=== PATIENT | male | born 1980 | race Caucasian/White ===

== ENCOUNTER 2024-10-21 15:06 | Emergency (ER) | payer OTHER ==
[~2024-10-21] VITALS: Ht 175.3 cm; Wt 60.8 kg
[2024-10-21] MEDS ORDERED: LOTRIMIN ULTRA12 GM TOP (15:59)
[2024-10-21] MEDS ORDERED: LOTRIMIN AF12 GM TOP (17:34)
[2024-10-21] MEDS ORDERED: TERBINAFINE HC250 MG PO (17:34)
[2024-10-21] MEDS ORDERED: BACTRIM DS TAB1 EACH PO (17:34)
[2024-10-21 17:42] VITALS: BP 132/93
[2024-10-21] MEDS ORDERED: TRIMETHOPRIM/SULFAMETHOXAZOLE 1 EA TAB PO ONE (17:45)
== END 2024-10-21 17:42 | disposition home or self-care (01) ==
LOC: ED 15:06
DX: L03.115 Cellulitis of right lower limb (principal); B35.1 Tinea unguium; B35.3 Tinea pedis; J45.909 Unspecified asthma, uncomplicated; Z79.899 Other long term (current) drug therapy
CPT/HCPCS: 99282; A9270

== ENCOUNTER 2025-06-23 08:37 | Inpatient (IN) | payer OTHER ==
[~2025-06-23] VITALS: Ht 175.3 cm; Wt 71.7 kg
[2025-06-23] VITALS (14 sets, daily range): BP systolic 95–136; BP diastolic 46–92
[~2025-06-23 08:37] MED LIST: BACTRIM DS TAB1 EACH PO; LOTRIMIN AF12 GM TOP; LOTRIMIN ULTRA12 GM TOP; TERBINAFINE HC250 MG PO
[2025-06-23 09:14] LABS: BASOPHILS 1.4 % (0.2-1.2); EOSINOPHILS 0.8 % (0.8-7.0); LYMPHOCYTES 16.6 % (21.8-53.1); MCH 35.6 PG (25.7-32.2); MCHC 36.2 g/dL (32.3-36.5); MCV 98.4 fL (79.0-92.2); MONOCYTES 9.4 % (5.3-12.2); NEUTROPHILS 71.4 % (34.0-67.9); RBC 3.71 M/uL (4.63-6.08)
[2025-06-23] MEDS ORDERED: PANTOPRAZOLE SODIUM 40 MG/10 ML VIAL IV ONE (09:15)
[2025-06-23] MEDS ORDERED: LORazepam 2 MG/ML VIAL IV ONE ×2 (09:15→10:30)
[2025-06-23 09:23] LABS: INR 1.8 (0.80-1.30); PROTIME 19.8 Sec (11.2-14.2)
[2025-06-23 09:28] LABS: ALT (SGPT) 23.0 U/L (14-59); AST (SGOT) 112.0 U/L (15-37); GLOMERULAR FILTRATION RATE,EST 117.0 mL/min (>60); PROTEIN, TOTAL 7.6 g/dL (6.4-8.2); UREA NITROGEN 5.0 mg/dL (7-18)
[2025-06-23 09:48] LABS: ABO A; ANTIBODY SCREEN NEGATIVE; RH POSITIVE
[2025-06-23] MEDS ORDERED: SODIUM CHLORIDE 0.9% 1,000 ML IV ONE ×2 (10:00→16:00)
[2025-06-23 10:19] LABS: CORONAVIRUS COVID-19 AG NEGATIVE (NEGATIVE)
[2025-06-23] MEDS ORDERED: NICOTINE POLACRILEX 2 MG GUM MM PRN ×2 (12:15→12:30)
[2025-06-23] MEDS ORDERED: LACTATED RINGER'S 1,000 ML IV SCH (12:15)
[2025-06-23] MEDS ORDERED: PANTOPRAZOLE SODIUM 40 MG TABEC PO SCH (12:19)
[2025-06-23] MEDS ORDERED: NICOTINE 21 MG/24 HR 1 EA TDSY TD SCH (12:19)
[2025-06-23] MEDS ORDERED: FOLIC ACID 1 MG/0.2 ML ML IV SCH (12:22)
[2025-06-23] MEDS ORDERED: THIAMINE HCL 200 MG/2 ML VIAL IV SCH (12:22)
[2025-06-23] MEDS ORDERED: LORazepam 2 MG/ML VIAL IV/IM PRN (12:30)
[2025-06-23] MEDS ORDERED: POLYETHYLENE GLYCOL 3350 1 PACKET PO PRN (12:30)
[2025-06-23] MEDS ORDERED: DEXTROSE 5% IV ONE ×2 (12:30→12:45)
[2025-06-23] MEDS ORDERED: ACETYLCYSTEINE IV ONE ×2 (12:30→12:45)
[2025-06-23] MEDS ORDERED: NICOTINE 14 MG/24 HR 1 EA TDSY TD ONE (12:30)
--- NOTE | 2025-06-23 14:20 | NUR ---
Medications reconciled
[2025-06-23] MEDS ORDERED: PHENOBARBITAL SOD 130 MG/ML VIAL IV ONE ×2 (16:00→22:15)
--- NOTE | 2025-06-23 16:33 | NUR ---
CALL PLACED TO [facility] TRANSFER CENTER TO ATTEMPT TRANSFER
--- NOTE | 2025-06-23 16:46 | NUR ---
[facility] REPORTS NO BEDS. [facility] REPORTS NO BEDS, WITH "SIGNIFICANT WAITLIST."
[2025-06-23 16:52] LABS: BLOOD/HGB, URINE MODERATE (Negative); KETONE, URINE >=80 (Negative); LEUK ESTERASE, URINE NEGATIVE (negative); NITRITE, URINE POSITIVE (negative)
--- NOTE | 2025-06-23 16:58 | NUR ---
CALLS TO BOTH [facility] AND [facility] WHO STATE THEY DO NOT HAVE HEPATOLOGY, BUT WILL GET CONSULT FOR GI AND CALL BACK.
[2025-06-23 16:59] LABS: EPITHELIAL CELLS, URINE SQUAMOUS 1+ /lpf (0-1+)
[2025-06-23 17:01] LABS: BACTERIA, URINE 1+ /hpf (negative); CASTS, URINE WBC CAST 2+ \\lpf; CRYSTALS, URINE NONE SEEN (0-1+); REFLEX CULTURE, URINE Yes (No)
--- NOTE | 2025-06-23 17:04 | NUR ---
PT CIWA OF 11 MUMBLINE,RAMBLING, PICKING AT THE AIR. PT MEDICATED WITH 2MG IVP ATIVAN. SIDERAILS UP X 4, CALL DERAS IN REACH, BED IN LOW POSITION AND LOCKED.
--- NOTE | 2025-06-23 17:08 | NUR ---
PATIENT ADMITTED AT 1400 FOR ETOH W/D AND ALCOHOLIC HEPATITIS. [facility] PT STARTED ON IV ACETYLCYSTEINE. IV SITE IN LEFT AC LEAKING AND AFTER REDRESSING SITE, STILL LEAKING AND THIS WAS D/C. PT BLEEDING FROM THIS SITE AND MANUAL PRESSURE APPLIED AND THEN GAUZE WITH COBAN. NEW IV SITES ESTABLISHED AND WORKING WELL. DR. DERAS IN ROOM TO SEE PATIENT AROUND 1600 AND DECIDES THAT PATIENT NEEDS TO TRANSFER TO HIGHER LEVEL OF CARE. THIS WAS DISCUSSED WITH PATIENT AND HE AGREES TO PLAN. ORDERS REC'D TO GIVE PHENOBARBITAL AND ANOTHER SALINE BOLUS, WELL STARTING MAINTENANCE FLUIDS. PATIENT'S HANNAH CALLED AT [phone] T0 UPDATE HER ON THE POTENTIAL TRANSFER. PT HAS REC'D 4 MG OF IV ATIVAN SINCE ARRIVING TO CCU AND 130 MG OF PHENOBARBITAL (SEE EMAR). WILL CONTINUE TO MONITOR CLOSELY.
--- NOTE | 2025-06-23 17:50 | NUR ---
PT TRANSFERRED TO ROOM 129 FOR CLOSER VISUAL OBSERVATION. ALL PERSONAL BELONGINGS TRANSFERRED TO NEW ROOM. PT WATCH PLACED IN LOCK BOX IN ROOM. PT CONTINUES MUMBLING, FIDGITING, PICKING AT THINGS IN THE AIR AND RAISING LEGS. PT UNABLE TO ANSWER QUESTIONS CLEARLY. CIWA SCORE 14. PT MEDICATED WITH 2MG IVP ATIVAN. SIDERAILS UP X 4, CALL DERAS IN REACH, BED IN LOW POSITION AND LOCKED.
--- NOTE | 2025-06-23 18:02 | NUR ---
PATIENT'S CALLED TO UPDATE THAT HE IS NOT BEING TRANSFERRED TONIGHT AT THIS POINT AFTER DR. DERAS HAD CONVERSATIONS WITH OTHER PHYSICIANS AT OTHER HOSPITALS. PER DR. DERAS, WILL CONTINUE TO MONITOR LAB LEVELS AND SEEK TRANSFER IF FURTHER INDICATED. PT HAS NOW REC'D 8 MG OF IV ATIVAN SINCE ADMISSION AND 130 MG IV PHENOBARBITAL.
[2025-06-23] MEDS ORDERED: MAGNESIUM SULFATE 2 GM/50 ML BAG IV SCH (18:15)
[2025-06-23] MEDS ORDERED: MELATONIN 3 MG TAB PO PRN (21:00)
--- NOTE | 2025-06-23 22:49 | NUR ---
1929: Upon initial assessment, pt somnolent, this RN unable to wake pt via sternal rub. 2011: This RN spoke with Dr. Shah with concerns for urinary retention. At this time, pt had only had 175ml output. Bladder scan amount >631. Portillo order per Dr. Shah. This RN unable to advance 16 Fr Portillo d/t size of urethral meatus. 14 Fr Coude inserted without difficulty. After insertion, pt expressed urge to urinate and began pushing. Urine flow around catheter noted. 2204: Pt continues to become increasingly restless, agitated, impulsive. He is minimally responsive to reorientation/redirection. CIWA continues to increase despite Ativan dosing. This RN spoke with Dr. Shah regarding this, 130mg Phenobarbital ordered per .
[2025-06-24] VITALS (24 sets, daily range): BP systolic 97–128; BP diastolic 66–97
[2025-06-24 05:14] LABS: BASOPHILS 1.4 % (0.2-1.2); EOSINOPHILS 3.0 % (0.8-7.0); LYMPHOCYTES 24.6 % (21.8-53.1); MCH 34.7 PG (25.7-32.2); MCHC 35.2 g/dL (32.3-36.5); MCV 98.7 fL (79.0-92.2); MONOCYTES 12.6 % (5.3-12.2); NEUTROPHILS 57.9 % (34.0-67.9); RBC 2.97 M/uL (4.63-6.08)
[2025-06-24 05:30] LABS: INR 2.26 (0.80-1.30); PROTIME 23.6 Sec (11.2-14.2)
[2025-06-24 05:37] LABS: ALT (SGPT) 18.0 U/L (14-59); AST (SGOT) 75.0 U/L (15-37); GLOMERULAR FILTRATION RATE,EST 128.0 mL/min (>60); PHOSPHORUS, INORGANIC 1.8 mg/dL (2.5-4.9); PROTEIN, TOTAL 5.8 g/dL (6.4-8.2); UREA NITROGEN 6.0 mg/dL (7-18)
[2025-06-24] MEDS ORDERED: POTASSIUM PHOSPHATE 30 MMOL in DEXTROSE 5% 500 ML IV ONE (06:45)
[2025-06-24] MEDS ORDERED: PHYTONADIONE 5 MG in DEXTROSE 5% 50 ML IV ONE (06:45)
[2025-06-24] MEDS ORDERED: ALBUTEROL SULFATE 0.083% 3 ML VIAL INH PRN (07:00)
[2025-06-24] MEDS ORDERED: ALBUMIN HUMAN 25% 100 ML BTL IV SCH (07:00)
--- NOTE | 2025-06-24 07:35 | EKG ---
[facility] [address] [place], [place] [address] Signed Sinus tachycardia Otherwise normal ECG No previous ECGs available Confirmed by DEEP DERAS MD ([id number]) on 06/24/2025 7:35:15 AM Electronically Signed By: DEEP DERAS 06/24/25 0735 PATIENT NAME: JOSSELIN MCCRACKEN Myles Electrocardiogram DATE OF : 84 PHYSICIAN: DEEP DERAS REPORT #: [id number] REPORT IS CONFIDENTIAL AND NOT TO BE RELEASED WITHOUT AUTHORIZATION
--- NOTE | 2025-06-24 07:40 | NUR ---
PATIENT ON THE COMMODE AT THE BEDSIDE. PATIENT NEEDED HEAVY 2PA WITH THIS RN AND CRISTINA RN. PATIENT REPORTED WEAKNESS, BUT DENIED DIZZINESS OF FEELING LIGHTHEADED. HE STATED HE FELT "GROGGY". PATIENT ON THE COMMODE WITH INABILITY TO HAVE A BOWEL MOVEMENT. PATIENT REPORTS HAVING THE URGE TO GO. PATIENT ASKED, "HAVE I BEEM GETTING ANY MEDICATIONS THAT STOP ME UP?". PATIENT EDUCATED ABOUT ABDOMINAL DISTENTION MAKING IT FEEL LIKE HE NEEDS TO HAVE A BOWEL MOVEMENT. PATIENT COMMUNICATES UNDERSTANDING. PATIENT BACK IN BED WITH HOB ELEVATED. PATIENT'S O2 SAT AT 96% ON RA. PATIENT HAS EVEN AND UNLABORED RESPIRATIONS. CALL LIGHT AND PERSONAL BELONGINGS ARE WITHIN REACH. PATIENT DENIES FURTHER NEEDS AT THIS TIME.
--- NOTE | 2025-06-24 07:59 | NUR ---
UR CLINICAL REVIEW: M[facility]-PER [facility] REVIEW MEET INPT FOR LIVER DISEASE WITH NEED FOR SERIAL LABS AND CIWA [facility] INPT 06/23/25 @ 1220 ORDER MATCHES REG CLIN[facility] FOR AUTH REVIEW DISCHARGE TO HOME PENDING FURTHER EVAL. HOME VS INPT DETOX 06/25/25 DC REVIEW
[2025-06-24] MEDS ORDERED: MULTIVITAMINS THERAPEUTIC 1 EA TAB PO SCH (08:00)
[2025-06-24] MEDS ORDERED: CHLORDIAZEPOXIDE 25 MG CAP PO SCH (09:00)
--- NOTE | 2025-06-24 10:30 | NUR ---
INTO SEE PATIENT. PERSONAL HEALTH INFORMATION REVIEWED WITH . PATIENT LIVES IN AN APARTMENT WITH AND KIDS. 8 STEPS INTO THE APARTMENT. PATIENT DOES NOT USE ANY DME. PATIENT DOES DRIVE. PCP IS DR. JONES. SPOKE WITH ABOUT ALCOHOL COUNSELING SERVICES. TEARFUL. STATES THEY HAVE BEEN HAVING DIFFCULTY PAYING UTLITIES AND GETTING FOOD. GAVE HER INFORMATION FOR [employer] AND THE FOOD CALLES. ALSO TALKED WITH HER ABOUT [employer] [facility]SP[facility].
[2025-06-24 10:35] LABS: ABO A; RH POSITIVE
[2025-06-24] MEDS ORDERED: PHARMACY RENAL DOSE ADJUSTMENT 1 DOSE MISC PO SCH (12:00)
--- NOTE | 2025-06-24 12:04 | NUR ---
PATIENT LAYING IN BED WITH HOB ELEVATED. PATIENT HAS EVEN AND UNLABORED RESPIRATIONS, 1L NC AND END-TIDAL CO2 MONITOR IN PLACE. PATIENT'S CIWA 2 WITH SOME TREMORS AND CLAMMY HANDS. HR 113 B/P 110/78 RR 28. PATIENT CONTINUES TO HAVE ABDOMINAL DISTENTION AND PRESSURE ON HIS LUNGS, BOWELS AND BLADDER. PATIENT STATES HE IS "UNABLE TO TAKE A DEEP BREATH" DUE TO HIS ABDOMINAL GIRTH. PATIENT HAS BEEN UNABLE TO HAVE A BM, EVEN WHEN HE FEELS THE NEED TO GO. AT BEDSIDE, CRISTINA RICH UPDATING ON PLAN OF CARE AND PLANS TO KEEP HIM IN THE FACILITY AT THIS TIME. PATIENT HAS PERSONAL BELONGINGS AD CALL LIGHT WITHIN REACH. ACYTYLCESTIENE, K PHOS, AND LR INFUSING AT THIS TIME.
--- NOTE | 2025-06-24 12:33 | NUR ---
PT NOT AVAILABLE FOR VISIT. PROVIDED PRAYER.
--- NOTE | 2025-06-24 12:34 | NUR ---
VISITED DURING SPIRITUAL CARE ROUNDS. PT APPEARED TO BE SLEEPING. DID NOT DISTURB. PROVIDED PRAYER.
--- NOTE | 2025-06-24 14:54 | NUR ---
1 UNIT OF PLATELETS STARTED AT 1437 AT 120 ML/HR FOR THE FIRST 30 ML INTO RIGHT FOREARM IV SITE. PT TOLERATED FIRST 15 MINUTES WITHOUT ANY SIGNS OF ADVERSE REACTIONS AND IV RATE INCREASED TO 200 ML/HR. PT ASKING FOR SPRITE AND GIVEN THIS AND TOOK SEVERAL SIPS SAFELY. PT REMAINS ON 1 L NC. HR REMAINS IN THE 110s. NO VISITORS IN ROOM AT THIS TIME. BED ALARM ON FOR SAFETY.
[2025-06-24 15:35] LABS: GLOMERULAR FILTRATION RATE,EST 129.0 mL/min (>60); PHOSPHORUS, INORGANIC 3.3 mg/dL (2.5-4.9); UREA NITROGEN 3.0 mg/dL (7-18)
[2025-06-24] MEDS ORDERED: POTASSIUM CHLORIDE 10 MEQ TABCR PO ONE (17:15)
--- NOTE | 2025-06-24 21:11 | NUR ---
Pt's agitation and anxiety progressing. Pt reporting restlessness and anxiety. This RN observed increased fidgeting. Treated w/ PRN Ativan per orders. Pt is more coherent this shift, able to verbalize needs, participate more actively in cares.
--- NOTE | 2025-06-24 23:20 | NUR ---
This RN spoke w/ Dr. Shah regarding pt increasing withdrawal symptoms. CIWA 14 despite total 8mg of Ativan, 25mg IV Benadryl, and 25mg Librium per orders. Dr. Shah recommends 130mg Phenobarbital IVP, ordered by this RN.
[2025-06-24] MEDS ORDERED: PHENOBARBITAL SOD 130 MG/ML VIAL IV ONE (23:30)
[2025-06-25] VITALS (24 sets, daily range): BP systolic 93–136; BP diastolic 61–105
[2025-06-25 05:15] LABS: BASOPHILS 0 % (0.2-1.2); EOSINOPHILS 0 % (0.8-7.0); LYMPHOCYTES 12.9 % (21.8-53.1); MCH 35.8 PG (25.7-32.2); MCHC 36.2 g/dL (32.3-36.5); MCV 98.9 fL (79.0-92.2); MONOCYTES 3.6 % (5.3-12.2); NEUTROPHILS 83.0 % (34.0-67.9); RBC 2.82 M/uL (4.63-6.08)
[2025-06-25 05:24] LABS: INR 2.34 (0.80-1.30); PROTIME 24.3 Sec (11.2-14.2)
[2025-06-25 05:29] LABS: ALT (SGPT) 20.0 U/L (14-59); AST (SGOT) 72.0 U/L (15-37); GLOMERULAR FILTRATION RATE,EST 130.0 mL/min (>60); PHOSPHORUS, INORGANIC 2.5 mg/dL (2.5-4.9); PROTEIN, TOTAL 6.1 g/dL (6.4-8.2); SMEAR REVIEW BLOOD SEE COMMENTS; UREA NITROGEN 3.0 mg/dL (7-18)
--- NOTE | 2025-06-25 05:53 | NUR ---
This RN called to updated Dr. Shah on pt condition. Pt becoming more agitated, restless, pulling at IVs/cords despite treating CIWA scores w/ Ativan. Per Dr. Shah, give 60mg Phenobarbital IVP. Ordered by this RN.
--- NOTE | 2025-06-25 05:55 | NUR ---
This RN spoke with Dr. Shah regarding pt labs. Electrolyte replacements ordered per MD. Moderate SSI, blood glucose checks AC/HS d/t pt glucose trending up on Solumedrol.
[2025-06-25] MEDS ORDERED: PHENOBARBITAL SOD 130 MG/ML VIAL IV ONE ×3 (06:00→16:45)
[2025-06-25] MEDS ORDERED: MAGNESIUM SULFATE 2 GM/50 ML BAG IV ONE (06:15)
[2025-06-25] MEDS ORDERED: POTASSIUM CHLORIDE 40 MEQ in DEXTROSE 5% 250 ML IV ONE (06:15)
--- NOTE | 2025-06-25 07:07 | NUR ---
Shift Summary Pt being treated for ETOH W/D. CIWAs 0-18 throughout the night. Treated with Ativan, Phenobarbital, and Librium per eMAR orders. MD aware of pt condition, updated throughout the night with pt's progress, CIWAs, and Ativan doses. Plan & treatment to be updated by this AM, per verbal communication at pt's bedside this AM.
[2025-06-25] MEDS ORDERED: FOLIC ACID 1 MG TAB PO SCH (08:00)
[2025-06-25] MEDS ORDERED: THIAMINE HCL 100 MG TAB PO SCH (08:00)
[2025-06-25] MEDS ORDERED: Insulin Regular, Human 100 UNIT/ML ML SUB-Q SCH (08:00)
[2025-06-25] MEDS ORDERED: IBLOOD GLUCOSE TEST STRIP 1 EA TEST XX SCH (08:00)
--- NOTE | 2025-06-25 08:22 | NUR ---
IN PATIENT'S ROOM FOR AM ASSESSMENT, VITALS AND DENTAL CHAIRSIDE ASSISTANT. CIWA 20 AT THIS TIME. PATIENT DISORIENTED, TALKING ALOUD AND NOT MAKING SENSE. PT GIVEN ATIVAN PER CIWA. PT ABLE TO TAKE PILLS ONE AT A TIME AFTER SITTING ALL THE WAY UPRIGHT IN BED. PT SEEMINGLY AGITATED AND USING SOME CURSE WORDS, YELLING OUT. PT'S HANNAH NOW IN ROOM. BED ALARM REMAISN ON FOR SAFETY. PT NOTED TO BE PULLING AT SOME IV SITES. IV POTASSIUM BEING INFUSED. PT NEEDING OXYGEN BUT PULLING IT OFF HIS FACE. WILL CONTINUE TO MONITOR CLOSELY.
--- NOTE | 2025-06-25 08:59 | NUR ---
DR. DERAS IN ROOM TO SEE PATIENT. PATIENT HAS HAD CXR THIS AM FOR HYPOXIA AND REMAINS ON 2 L NC. VERBAL ORDERS REC'D FOR IV LASIX AND IV PHENOBARB, AND IV FLUIDS D/C. PT'S REMAINS IN ROOM AT THIS TIME. BED ALARM ON FOR SAFETY.
[2025-06-25] MEDS ORDERED: FUROSEMIDE 20 MG/2 ML VIAL IV ONE (09:00)
--- NOTE | 2025-06-25 09:30 | NUR ---
IN BED. SPOUSE AT BEDSIDE. PLAN FOR CONTINUED INPT CARE AT THIS TIME. DC PLAN PENDING FURTHER TREATMENT, PATIENT ALLOWED TO REST AT THIS TIME.
--- NOTE | 2025-06-25 11:57 | NUR ---
DR. DERAS IN ROOM WITH PATIENT AND AT THIS TIME UPDATING ON THE PLAN OF CARE. PATIENT RESTING WITH EYES CLOSED, RESPIRATIONS EVEN AND UNLABORED.
[2025-06-25 12:19] LABS: HEPATITIS A ANTIBODY, IGM Negative (Negative); HEPATITIS C AB CIA INTERP Negative (Negative); HEPATITIS C ANTIBODY CIA INDEX 0.06 IV (())
--- NOTE | 2025-06-25 14:08 | NUR ---
UR DISCHARGE REVIEW: ALCOHOL DEPENDENCY NOTED BARRIER TO DISCHARGE UNABLE TO ASSESS PATIENT FOR DISCHARGE PLAN AT THIS TIME DUE TO MENTATION. ADD: UNKNOWN NO ACTIONS REQUIRED
--- NOTE | 2025-06-25 15:34 | NUR ---
PATIENT LYING IN BED WITH EYES CLOSED, EVEN AND UNLABORED RESPIRATIONS. LINEN CHANGE, CATHETER CARE, FULL BED BATH AND SHAMPOO COMPLETE. WHILE CLEANING PATIENT, WE ASKED ORIENTATION QUESTIONS. HE THOUGHT IT WAS MAY AND WHEN ASKED WHAT DAY HE STATED "MY BIRTHDAY". WHEN TOLD TOMORROW IS HIS BIRTHDAY HE STATED "SOMEONE ELSE'S BIRTHDAY". PATIENT OREIENTED TO LOCATION, SELF, AND SITUATION. PATIENT IS SLOW TO RESPOND, HAS MUMBLED SPEECH BUT RESPONDS APPROPRIATELY MOST OF THE TIME. CALL LIGHT AND PERSONAL BELONGINGS ARE WITHIN REACH.
[2025-06-25 16:18] LABS: GLOMERULAR FILTRATION RATE,EST 126.0 mL/min (>60); UREA NITROGEN 4.0 mg/dL (7-18)
--- NOTE | 2025-06-25 20:30 | NUR ---
Dr. Shah arrived for updates on pt. Pt is resting well, vitally stable. Withdrawal symptoms well controlled at this time. Last dose of Phenobarbital given @ ~0900 this morning. Last dose of Ativan given @ ~0800 this morning. Pt responsive to verbal stimuli, drowsy, returning to sleep shortly after awakenings. Continue ETOH Withdrawal regimen per Dr. Shah's written orders.
[2025-06-25] MEDS ORDERED: ALBUMIN HUMAN 25% 100 ML BTL IV ONE (23:45)
--- NOTE | 2025-06-25 23:45 | NUR ---
RN TO MD COMMUNICATION Pt UOP 15ml/hr x2 hrs. Pt is vitally stable, no other significant changes in pt condition. This RN notified Dr. Shah, orders for 25g Albumin x1.
[2025-06-26] VITALS (22 sets, daily range): BP systolic 72–113; BP diastolic 40–80
[2025-06-26] MEDS ORDERED: PHENOBARBITAL SOD 130 MG/ML VIAL IV ONE (00:30)
[2025-06-26 05:16] LABS: BASOPHILS 0.1 % (0.2-1.2); EOSINOPHILS 0 % (0.8-7.0); LYMPHOCYTES 10.3 % (21.8-53.1); MCH 35.7 PG (25.7-32.2); MCHC 35.7 g/dL (32.3-36.5); MCV 100.0 fL (79.0-92.2); MONOCYTES 6.6 % (5.3-12.2); NEUTROPHILS 82.7 % (34.0-67.9); RBC 2.72 M/uL (4.63-6.08)
[2025-06-26 05:30] LABS: INR 2.34 (0.80-1.30); PROTIME 24.3 Sec (11.2-14.2)
[2025-06-26 05:38] LABS: ALT (SGPT) 21.0 U/L (14-59); AST (SGOT) 69.0 U/L (15-37); GLOMERULAR FILTRATION RATE,EST 132.0 mL/min (>60); PHOSPHORUS, INORGANIC 3.8 mg/dL (2.5-4.9); PROTEIN, TOTAL 6.1 g/dL (6.4-8.2); UREA NITROGEN 6.0 mg/dL (7-18)
[2025-06-26 05:45] LABS: SMEAR REVIEW BLOOD SEE COMMENTS
--- NOTE | 2025-06-26 06:21 | NUR ---
RN TO MD COMMUNICATION This RN updated MD on pt UOP and pertinent labs, ordered NS 50ml/hr per MD.
[2025-06-26] MEDS ORDERED: SODIUM CHLORIDE 0.9% 1,000 ML IV SCH (06:30)
--- NOTE | 2025-06-26 07:40 | NUR ---
bedside report, assumed care - pt sleeping in bed with alarm on visible to rn station, iv wnl - godoy to gravity call light in reach
--- NOTE | 2025-06-26 08:35 | NUR ---
i/o recorded - 25 ml of dark urine, and iv pump cleared. pt sleeping soundly.
--- NOTE | 2025-06-26 08:48 | NUR ---
pt very sleepy - able to wake and swallow pills with encouragement and drink clear liq. ensure. pt coughs and enc. to take deep breathes.
--- NOTE | 2025-06-26 11:13 | NUR ---
VISITED DURING SPIRITUAL CARE ROUNDS. PT APPEARED TO BE SLEEPING. DID NOT DISTURB. PROVIDED PRAYER.
--- NOTE | 2025-06-26 13:15 | NUR ---
pt resting in bed moving around on own with alarm on, opens eyes- sleepy.
--- NOTE | 2025-06-26 13:38 | NUR ---
PATIENT HAS BEEN FAIRLY LETHARGIC TODAY. WILL SPEAK WITH HIM WHEN HE IS MORE ALERT REGARDING DC PLAN.
--- NOTE | 2025-06-26 13:46 | NUR ---
DR DERAS HERE AT PT BEDSIDE - NEW ORDERS FOR PO PHENOBARBITOL, 60 MG PO BID, START NOW. PT RESTING IN BED - RN HELPED HIM WITH WARM WASH CLOTH, PT OPENS EYES - ROOM AIR SATS 80%, REPLACED WITH 2L NC TO SAT AT 91%, PT HAS NOISEY COUGH AND IS ENC. TO TURN, COUGH AND DEEP BREATH.
--- NOTE | 2025-06-26 17:18 | NUR ---
bs 148 insulin held as pt is sleepy and not eating. iv fusing, godoy with qs to gravity. bed alarm on and call light in reach.
--- NOTE | 2025-06-26 18:43 | NUR ---
PT AWAKEN - NOT ORIENTED. WHEN ASKED WHERE WE ARE HE SAYS [place]" HE IS CONFUSED, PICKING AND RESTLESS - REORIENTED AND SETTLES ON SIDE. LEADS ADJUSTED ON MONITOR AND IV'S CHECKED WNL. PT VISIBLE TO RN. WITH BED ALARM ON.
--- NOTE | 2025-06-26 19:18 | NUR ---
DR DERAS HERE AND REVIEW MONITOR AND VITALS ON PT. NO CHANGES.
--- NOTE | 2025-06-26 19:30 | NUR ---
HANDOFF REPORT RECEIVED FROM HILARIO DANIELS. ALL QUESTIONS ANSWERED. PATIENT RESTING IN BED. VITAL SIGNS STABLE. NO EVIDENCE OF ACUTE DISTRESS NOTED. CALL LIGHT IN REACH.
--- NOTE | 2025-06-26 20:35 | NUR ---
PATIENT ASSESSMENT COMPLETE. PATIENT DROWSY, AWAKENS TO VERBAL STIMULI. PATIENT RESTLESS AT TIMES, BUT REDIRECTABLE. PATIENT STATES "I FEEL LIKE SHIT". PATIENT EDUCATED ON PLAN OF CARE FOR THE NIGHT. PATIENT ABLE TO TAKE SIPS OF WATER WITH NO CONCERNS. PATIENT DENIES NAUSEA OR PAIN AT THIS TIME. PATIENT IVF INFUSING PER EMAR, SITE WNL. PATIENT HAYES CATH INTACT, DRAINING JOHN COLORED URINE. PATIENT REMAINS CONFUSED, WITH SLOW RESPONSE TO QUESTIONS. VITAL SIGNS WNL. PATIENT ABDOMEN NOTED TO BE DISTENDED, SKIN AND EYES JAUNDICED. PATIENT HAS CALL LIGHT IN REACH. BED ALARM ON, PATIENT REMAINS VISIBLE FROM NURSING STATION.
[2025-06-26] MEDS ORDERED: LACTULOSE 20 GM/30 ML CUP PO SCH (21:00)
--- NOTE | 2025-06-26 22:32 | NUR ---
patient resting in bed with eyes closed, RR 27. patient remains on 2L NC, SPO2 95%. no signs of acute distress noted. patient visible from nurses station, bed alarm remains on.
--- NOTE | 2025-06-26 23:32 | NUR ---
ROUNDING ON PATIENT. PROVIDED UPDATE.
[2025-06-27] VITALS (23 sets, daily range): BP systolic 85–123; BP diastolic 71–99
--- NOTE | 2025-06-27 00:50 | NUR ---
PATIENT RESTING IN BED. IV SITES INTACT AND WNL. IVF INFUSING PER EMAR. HAYES INTACT AND DRAINING JOHN COLORED URINE. VITAL SIGNS STABLE. PATIENT REMAINS ON 2L NC, TOLERATING WELL. NO SIGNS OF ACUTE DISTRESS NOTED. BED ALARM ON, CALL LIGHT IN REACH.
--- NOTE | 2025-06-27 01:05 | NUR ---
PATIENT RESTING IN BED. RR EVEN AND UNLABORED. VITAL SIGNS STABLE. HAYES INTACT AND WNL. IV SITES INTACT AND WNL. IVF INFUSING PER EMAR. NO EVIDENCE OF ACUTE DISTRESS NOTED AT THIS TIME. CALL LIGHT IN REACH, BED ALARM ON.
--- NOTE | 2025-06-27 03:00 | NUR ---
PATIENT RESTING IN BED. RR EVEN AND UNLABORED. VITAL SIGNS STABLE. NO EVIDENCE OF ACUTE DISTRESS NOTED AT THIS TIME. BED ALARM ON, CALL LIGHT IN REACH
[2025-06-27 05:19] LABS: BASOPHILS 0.1 % (0.2-1.2); EOSINOPHILS 0 % (0.8-7.0); LYMPHOCYTES 9.3 % (21.8-53.1); MCH 35.2 PG (25.7-32.2); MCHC 34.4 g/dL (32.3-36.5); MCV 102.3 fL (79.0-92.2); MONOCYTES 7.2 % (5.3-12.2); NEUTROPHILS 82.7 % (34.0-67.9); RBC 3.07 M/uL (4.63-6.08)
[2025-06-27 05:33] LABS: ALT (SGPT) 24.0 U/L (14-59); AST (SGOT) 65.0 U/L (15-37); GLOMERULAR FILTRATION RATE,EST 123.0 mL/min (>60); PROTEIN, TOTAL 6.0 g/dL (6.4-8.2); UREA NITROGEN 9.0 mg/dL (7-18)
--- NOTE | 2025-06-27 05:49 | NUR ---
PATIENT RESTING IN BED. RR 22. PATIENT O2 96% ON 2 L NC AND TOLERATING WELL. VITAL SIGNS STABLE. PATIENT UPDATED ON POC. PATIENT DENIES NEEDS AT THIS TIME, CALL LIGHT IN REACH. BED ALARM ON.
--- NOTE | 2025-06-27 07:05 | NUR ---
dr charles here review labs with rn, aware of vitals, i/o, report from night filler.
[2025-06-27] MEDS ORDERED: MAGNESIUM SULFATE 1 GM/2 ML VIAL IV ONE (07:30)
--- NOTE | 2025-06-27 09:39 | NUR ---
BED ALARM ON, FLUSHED IV X3 AND RE DRESSED IV WINDOW DRESSINGS AFTER CLEANING WITH PREP. SITE WNL. LEFT FORE ARM IS NOTED TO BE SWOLLEN - NOT NEAR IV SL IN WRIST. IV THERE IS SL NO FLUIDS. PT CONFUSED DURING CARES, NOT ORIENTED, SLEEPY - PULLING AT IV AND HAYES- ATTEMPTED TO RE ORIENT AND PROVIDED HIS BLANKET FROM HOME FOR COMFORT. BED BATH AND SHAMPOO CAP PROVIDED FROM THIS RN, ORAL CARE WITH CARE KIT DONE. PT ON ROOM AIR 91% - ENC. TO COUGH WHILE HE WAS SITTING UP AT 90 DEGREES FOR CARES. NON PRODUCTIVE. ABD. IS NOTED TO BE ROUND AND FIRM -(ACITES), EYES ARE YELLOW AND PT WAS ABLE TO DRINK LACTULOSE WITH ENCOURAGEMENT AND MAX ASSIST. PT HAS HAYES AND ATTEND ON - PASSED LG AMT OF GAS AND DECLINED NEEDING TO GET UP FOR A BM.
--- NOTE | 2025-06-27 11:34 | NUR ---
PT NOT AVAILABLE FOR VISIT. PROVIDED PRAYER.
--- NOTE | 2025-06-27 11:41 | NUR ---
dr charles here and in with pt and mother for care confrence. rn attempted to call dc turnaround planner not avialable.
--- NOTE | 2025-06-27 12:31 | NUR ---
pt restless and agitated, pulling at lines - confused - bed alarm on and call light in reach visible to rn. see emar.
--- NOTE | 2025-06-27 13:13 | NUR ---
In with pt for sips of water and to provide him with a warm blanket. Pt attempts to pick at his left arm where the IV tubing is against his skin. Is easily redirected.
--- NOTE | 2025-06-27 14:03 | NUR ---
SPOKE WITH MARILYN () ABOUT PATIENT AND HER QUESTIONS ABOUT [facility]. LET HER KNOW WE WILL WAIT FOR PATIENT ORIENTATION TO IMPROVE TO ASK IF THE PATIENT IS WILLING TO ACCEPT RESOURCES. [facility] HAVE ALCOHOL AND ADDICTION SERVICES. [facility] FREE [facility]SPORTATION TO APPOINTMENTS.
--- NOTE | 2025-06-27 14:50 | NUR ---
METAL CASKET MAKER CHARTED VITALS AND REALIZED LATER THERE WERE A FEW THINGS MISSED SO I WENT BACK IN AND FIXED THEM.
--- NOTE | 2025-06-27 18:02 | NUR ---
pt given clear liq ensure - max assist to hold and enc. to drink with po pills. pt restless and pulled off all monitor leads, confused and re directed. visible to rn with call light and bed alarm.
--- NOTE | 2025-06-27 19:35 | NUR ---
HANDOFF REPORT RECEIEVED FROM HILARIO DANIELS. ALL QUESTIONS ANSWERED. PATIENT RESTING IN BED. VITAL SIGNS STABLE. NO EVIDENCE OF ACUTE DISTRESS NOTED. PATIENT IN DIRECT VISUALIZATION FROM RN STATION. BED ALARM ON, CALL LIGHT IN REACH
--- NOTE | 2025-06-27 20:30 | NUR ---
PATIENT ASSESSMENT COMPLETE. RASS -1. PATIENT DISORIENTED TO DATE. PATIENT ASLEEP BUT AROUSABLE WITH VERBAL AND TACTILE STIMULI. PATIENT ST. RR EVEN AND UNLABORED. PATIENT ON 2L NC, SPO2 95%, AND TOLERATING WELL. DENIES NAUSEA OR PAIN. SKIN AND EYES NOTED TO BE JAUNDICED. IV SITE ON R. AC NOTED TO BE LEAKING, IV SITE DC. IV CATHETER INTACT. SITE COVERED W/ GAUZE AND COBAN. IVF INFUSING PER EMAR. ABDOMEN FIRM UPON PALPATION AND NOTED TO BE MODERATELY DISTENDED. HAYES INTACT, CATHETER CARE COMPLETE. HAYES DRAINING JOHN COLORED URINE. PATIENT TOLERATES SIPS OF FLUIDS. VITAL SIGNS STABLE. NO EVIDENCE OF ACUTE DISTRESS NOTED. BED ALARM ON, CALL LIGHT IN REACH.
--- NOTE | 2025-06-27 21:45 | NUR ---
PATIENT RESTING IN BED W/ EYES CLOSED, RR 22. IVF INFUSING PER EMAR. IV SITES INTACT. HAYES INTACT. VITAL SIGNS STABLE. NO EVIDENCE OF ACUTE DISTRESS NOTED. BED ALARM ON, CALL LIGHT IN REACH.
--- NOTE | 2025-06-27 23:00 | NUR ---
PATIENT RESTING IN BED W/ EYES CLOSED, RR 23. NO SIGNS OF ACUTE DISTRESS NOTED. CALL LIGHT IN REACH. BED ALARM ON.
[2025-06-28] VITALS (21 sets, daily range): BP systolic 102–132; BP diastolic 62–103
--- NOTE | 2025-06-28 | NUR ---
PATIENT RESTING IN BED. SPO2 95% ON 2L NC, PATIENT TOLERATING WELL. IVF INFUSING PER EMAR. IV SITES INTACT. HAYES INTACT. SCDS IN PLACE. NO EVIDENCE OF ACUTE DISTRESS NOTED. CALL LIGHT IN REACH. BED ALARM ON.
--- NOTE | 2025-06-28 02:04 | NUR ---
PATIENT RESTING IN BED W/ EYES CLOSED, SPO2 95% ON 2L NC. PATIENT TOLERATING WELL. VITAL SIGNS STABLE. IVF INSFUSING PER EMAR. HAYES INTACT. NO EVIDENCE OF ACUTE DISTRESS NOTED. CALL LIGHT IN REACH. BED ALARM ON
--- NOTE | 2025-06-28 02:52 | NUR ---
PATIENT RESTING IN BED W/ EYES CLOSED, RR 19. MEDICATION ADMINISTERED PER EMAR. IVF INFUSING PER EMAR. IV SITES INTACT. HAYES INTACT. NO EVIDENCE OF ACUTE DISTRESS NOTED. PATIENT ON 1 L NC, SPO2 93%. VITAL SIGNS STABLE. CALL LIGHT IN REACH, BED ALARM ON.
--- NOTE | 2025-06-28 03:30 | NUR ---
PATIENT RESTING IN BED. RR EVEN AND UNLABORED. VITAL SIGNS STABLE. NO EVIDENCE OF ACUTE DISTRESS NOTED AT THIS TIME. IVF INFUSING PER EMAR. CALL LIGHT IN REACH, BED ALARM ON
--- NOTE | 2025-06-28 05:30 | NUR ---
PATIENT ASSESSMENT COMPLETE. PATIENT DENIES NAUSEA OR PAIN. PATIENT ORIENTED TO PLACE, MONTH, AND PERSON. IVF INFUSING PER EMAR. PATIENT BRIEF CHANGED. BRIEF NOTED TO HAVE SMALL SMEAR OF STOOL. NEW CHUCKS PAD PLACED. HAYES INTACT AND DRAINING JOHN COLORED URINE. PATIENT REPOSITIONED. BUE ELEVATED ON PILLOWS. PATIENT DENIES NEEDS AT THIS TIME. NEW GOWN PLACED. VITAL SIGNS STABLE. NO EVIDENCE OF ACUTE DISTRESS NOTED. CALL LIGHT IN REACH, BED ALARM ON.
[2025-06-28 05:31] LABS: ALT (SGPT) 25.0 U/L (14-59); AST (SGOT) 50.0 U/L (15-37); GLOMERULAR FILTRATION RATE,EST 134.0 mL/min (>60); PROTEIN, TOTAL 5.4 g/dL (6.4-8.2); UREA NITROGEN 9.0 mg/dL (7-18)
[2025-06-28 05:34] LABS: BASOPHILS 0.2 % (0.2-1.2); EOSINOPHILS 0 % (0.8-7.0); LYMPHOCYTES 9.0 % (21.8-53.1); MCH 34.8 PG (25.7-32.2); MCHC 34.6 g/dL (32.3-36.5); MCV 100.6 fL (79.0-92.2); MONOCYTES 7.6 % (5.3-12.2); NEUTROPHILS 82.3 % (34.0-67.9); RBC 3.13 M/uL (4.63-6.08)
--- NOTE | 2025-06-28 07:30 | NUR ---
REPORT RECEIVED FROM SHWETHA RICH.PT RESTING IN BED WITH EYES CLOSED, RESP EVEN AND UNLABORED. ON CONT CARDIAC MONITORING.
--- NOTE | 2025-06-28 08:49 | NUR ---
PT RESTING IN BED, EYES CLOSED, RESP EVEN AND UNLABORED.
[2025-06-28] MEDS ORDERED: ALBUMIN HUMAN 25% 100 ML BTL IV ONE (09:00)
--- NOTE | 2025-06-28 11:22 | NUR ---
PT NOT AVAILABLE FOR VISIT. PROVIDED PRAYER.
--- NOTE | 2025-06-28 11:44 | NUR ---
PT RESTING IN BED WITH EYES CLOSED, AT BEDSIDE. RESP EVEN AND UNLABORED, PT OCCASIONALLY TURNING SELF IN BED.
--- NOTE | 2025-06-28 12:23 | NUR ---
SPOKE WITH GAVE HER RESOUCES FOR TONY.
--- NOTE | 2025-06-28 16:42 | NUR ---
PT HAS BEEN MORE AWAKE, RESTLESS IN BED, HR HAS BEEN INCREASED UP TO 120. 2MG IV ATIVAN GIVEN.
--- NOTE | 2025-06-28 17:48 | NUR ---
IN TO SEE PT.
[2025-06-28] MEDS ORDERED: LACTULOSE 20 GM/30 ML CUP PO PRN (18:00)
--- NOTE | 2025-06-28 19:35 | NUR ---
HANDOFF REPORT RECEIVED FROM HILARIO DUCKWORTH. ALL QUESTIONS ANSWERED. PATIENT RESTING IN BED. VITAL SIGNS STABLE. NO EVIDENCE OF ACUTE DISTRESS NOTED. BED ALARM ON, CALL LIGHT IN REACH
[2025-06-28] MEDS ORDERED: LACTULOSE 20 GM/30 ML CUP PO SCH (21:00)
--- NOTE | 2025-06-28 21:00 | NUR ---
PATIENT ASSESSMENT COMPLETE. RASS -1. PATIENT DISORIENTED TO TIME, DATE, AND SURROUNDINGS. PATIENT DENIES PAIN OR NAUSEA AT THIS TIME. HAYES CATHETER INTACT AND DRAINING JOHN COLORED URINE. IV SITES INTACT, IVF INFUSING PER EMAR. PATIENT ON 3L NC, AND TOLERATING WELL. SPO2 95%. ABDOMEN NOTED TO BE MODERATELY DISTENDED AND FIRM TO PALPATION. BOWEL SOUNDS HYPOACTIVE. SKIN NOTED TO BE JAUNDICED. HR ST. NO EVIDENCE OF ACUTE DISTRESS NOTED. VITAL SIGNS STABLE. CALL LIGHT IN REACH, BED ALARM ON.
--- NOTE | 2025-06-28 22:35 | NUR ---
patient resting in bed. vital signs stable. ivf infusing per emar. no evidence of acute distress noted. bed alarm on, call light in reach
--- NOTE | 2025-06-28 22:57 | NUR ---
DR BARAKAT CALLED AND UPDATED ON PATIENT INCREASED ABDOMINAL DISTENTION AND FIRMNESS, WELL PATIENT NEW COMPLAINT OF ABDOMINAL PAIN. NEW ORDER RECEIVED FOR KUB AND MORPHINE. ORDERS ENTERED BY .
[2025-06-28] MEDS ORDERED: MORPHINE SULFATE 4 MG/ML VIAL IV PRN (23:00)
--- NOTE | 2025-06-28 23:20 | NUR ---
PATIENT RESTING IN BED. PATIENT DENIES PAIN AT THIS TIME. NO EVIDENCE OF ACUTE DISTRESS NOTED. CALL LIGHT IN REACH, BED ALARM ON
--- NOTE | 2025-06-28 23:33 | NUR ---
PATIENT REPOSITIONED IN BED. NEW GOWN PLACED. HAYES CATH REMAINS INTACT. PATIENT REMAINS ON 3L NC, SPO2 91%. PATIENT CONTINUES TO HAVE OCCASIONAL DRY COUGH. PATIENT HAS NO NEEDS AT THIS TIME. BED ALARM ON. PATIENT REMAINS VISIBLE FROM NURSES STATION FOR PATIENT SAFETY.
[2025-06-29] VITALS (18 sets, daily range): BP systolic 111–134; BP diastolic 77–102
--- NOTE | 2025-06-29 01:00 | NUR ---
MD ON UNIT. REVIEWED KUB AND DISCUSSED POC. PATIENT RESTING IN BED. VITAL SIGNS STABLE. NO EVIDENCE OF ACUTE DISTRESS NOTED. CALL LIGHT IN REACH, BED ALARM ON
--- NOTE | 2025-06-29 03:15 | NUR ---
patient restless in bed, pulling at lines and attempting to get out of bed. patient hard to redirect at times. patient given PRN ativan for CIWA score of 12. patient provided with ensure and sips of water, tolerated well. patient sitting up in bed, shower cap placed. patient titrated up to 4L NC, SPO2 91%. patient provided with cornet per RT. godoy care done. this RN and Alicia RN remain in room.
[2025-06-29] MEDS ORDERED: ALBUTEROL SULFATE 0.083% 3 ML VIAL INH PRN (03:45)
--- NOTE | 2025-06-29 04:46 | NUR ---
PATIENT RESTING IN BED W/ EYES CLOSED. SPO2 93% ON 3L NC. PATIENT TOLERATING WELL. VITAL SIGNS STABLE. NO EVIDENCE OF ACUTE DISTRESS NOTED. CALL LIGHT IN REACH, VITAL SIGNS STABLE.
[2025-06-29 05:13] LABS: BASOPHILS 0.2 % (0.2-1.2); EOSINOPHILS 0 % (0.8-7.0); LYMPHOCYTES 5.5 % (21.8-53.1); MCH 35.5 PG (25.7-32.2); MCHC 35.6 g/dL (32.3-36.5); MCV 99.7 fL (79.0-92.2); MONOCYTES 8.6 % (5.3-12.2); NEUTROPHILS 84.8 % (34.0-67.9); RBC 3.04 M/uL (4.63-6.08)
--- NOTE | 2025-06-29 05:16 | NUR ---
PATIENT RESTING IN BED W/ EYES CLOSED. RR EVEN AND UNLABORED. SPO2 94% ON 3L NC. PATIENT TOLERATING WELL. HAYES INTACT. IVF INFUSING PER EMAR. IV SITE INTACT. NO EVIDENCE OF ACUTE DISTRESS NOTED. CALL LIGHT IN REACH. BED ALARM ON
[2025-06-29 05:24] LABS: INR 2.44 (0.80-1.30); PROTIME 25.1 Sec (11.2-14.2)
[2025-06-29 05:27] LABS: ALT (SGPT) 27.0 U/L (14-59); AST (SGOT) 54.0 U/L (15-37); GLOMERULAR FILTRATION RATE,EST 125.0 mL/min (>60); PROTEIN, TOTAL 5.2 g/dL (6.4-8.2); UREA NITROGEN 8.0 mg/dL (7-18)
--- NOTE | 2025-06-29 06:50 | NUR ---
patient brief changed, and repositioned in bed. patient denies pain or nausea at this time. bed alarm remains on, call light in reach.
--- NOTE | 2025-06-29 07:30 | NUR ---
REPORT RECEIVED FROM SHWETHA RICH. PT RESTING IN BED, SLIGHTLY RESTLESS BUT REDIRECTABLE.
--- NOTE | 2025-06-29 08:20 | NUR ---
IN TO DO ASSESSMENT AND AM MEDS. PT IS DROWSY BUT DOES WAKE UP WHEN SAT UP IN BED TO TAKE PILLS AND LACTULOSE. HE IS ABLE TO STATE THAT HE IS IN THE HOSPITAL AND IT IS 2024. PT GOES QUICKLY BACK TO SLEEP. BED ALARM ON.
[2025-06-29] MEDS ORDERED: POTASSIUM CHLORIDE 40 MEQ,LIDOCAINE HCL 1% 40 MG in DEXTROSE 5% 250 ML IV ONE (09:00)
--- NOTE | 2025-06-29 09:38 | NUR ---
PT RESTING IN BED, MOSTLY RESTING, OCCASIONALLY TURNING HINMSELF IN BED, PULLING AT LINES AND CORDS BUT EASILY REDIRECTABLE.
--- NOTE | 2025-06-29 10:15 | NUR ---
PT SITTING UP IN BED, REPORTS URGE FOR BOWEL MOEVEMENT, ASSISTED UP TO BED SIDE COMMODE, PT WAS A VERY HEAVY 2 PERSON ASSIST, NOT MOVING FEET WELL. HE WAS ABLE TO SIT UP ON COMMODE ABOUT 10 MINUTES, HAD MEDIUM SIZED LIQUID STOOL, BACK TO BED WITH 2PA. HE WAS GIVEN A BATH WHILE SITTING UP ON COMMODE, CATH CARE DONE. PT DENIES NEEDS, TOOK SOME SMALL SIPS OF ENSURE, CONTINUES TO SAY HE DOES NOT WANT TO TRY EATING.
--- NOTE | 2025-06-29 12:00 | NUR ---
LUNCH BROUGHT IN TO PT, PT STATES HE DOES NOT WANT TO EAT AT THIS TIME. SIPS OF ENSURE GIVEN.
--- NOTE | 2025-06-29 13:08 | NUR ---
DR BARAKAT IN TO SEE PT
--- NOTE | 2025-06-29 13:49 | NUR ---
PT BEGAN SITTING UP TO EDGE OF BED, TRYING TO STAND-NOT FOLLOWING DIRECTIONS OR REDIRECTION ATTEMPTS, CONTINUED TO TRY TO STAND, WOULD NOT SAY WHAT HE NEEDED OR WHERE HE WAS GOING, DENIED NEED FOR BOWEL MOVMENT. CIWA 12, 2MG IV ATIVAN GIVEN, PT THEN STOPPED TRYING TO GET UP AND LAID BACK DOWN IN BED. BED ALARM ON.
--- NOTE | 2025-06-29 13:59 | NUR ---
PT AGAIN TRYING TO GET OUT OF BED, ATTEMPTED REORIENTATION AND LIFTED BACK INTO THE BED FROM SITTING ON THE FOOT OF IT.
--- NOTE | 2025-06-29 14:20 | NUR ---
PT RESTLESS, ASSISTED UP TO BSC, SAT UP APPROX 15 MINUTES, HAD SECOND BOWEL MOVEMENT FOR THE DAY. ASSISTED BACK TO BED. BED ALARM ON, PT NOW LYING RESTFUL WITH EYES CLOSED.
[2025-06-29] MEDS ORDERED: FUROSEMIDE 40 MG/4 ML VIAL IV SCH (14:43)
[2025-06-29] MEDS ORDERED: SPIRONOLACTONE 25 MG TAB PO SCH (14:43)
--- NOTE | 2025-06-29 16:07 | NUR ---
PT RESTING IN BED, RESTLESS, TRYING TO GET OUT OF BED BUT OVERALL VERY WEAK AND NOT SUCCESSFUL AT GETTING HIMSELF UP.
--- NOTE | 2025-06-29 17:00 | NUR ---
PT CONT TO BE RESTLESS, ASSISTED UP TO BSC TO SIT FOR AWHILE, NO BOWEL MOVEMENT, BACK TO BED, STILL VERY UNSTEADY ON FEET, NOT MOVING FEET WELL OR BEARING MUCH WEIGHT.
--- NOTE | 2025-06-29 17:45 | NUR ---
PT RESTLESS, SAT UP AT EDGE OF BED FOR APPROX 30 MINUTES, NOT ABLE TO VERBALIZE ANY NEEDS, FINALLY HE WAS ASSITED BACK TO LYING DOWN POSITION AND WARM BLANKETS GIVEN AND HE LAID BACK WITH EYES CLOSED LOOKING RESTFUL.
--- NOTE | 2025-06-29 19:30 | NUR ---
REPORT RECEIVED FROM DONITA RICH. PT RESTING IN BED, WATCHING TV. PT STATES SHE WOULD LIKE PAIN MEDS. EDUCATION PROVIDED. SPOUSE IN ROOM. CALL LIGHT IN REACH.
--- NOTE | 2025-06-29 19:30 | NUR ---
REPORT RECEIVED FROM DONITA RICH. PT IN BED, PULLING AT LINES. PT ENCOURAGED TO REST. BED ALARM ON. CALL LIGHT IN REACH.
--- NOTE | 2025-06-29 22:00 | NUR ---
ASSESSMENT, VS AND I&O COMPLETED. CIWA 14, MEDS PROVIDED. SCHEDULED MEDS PROIVDED. PT PULLED BOTH IVs FROM LEFT ARM, NEW 20G IV PLACED IN RFA. PT VERY RESTLESS, TRYING TO GET OUT OF BED, PULLING AT WIRES. 1:1 STAFF IN ROOM TO PREVENT INJURY. BED ALARM ON, CALL LIGHT IN REACH.
--- NOTE | 2025-06-29 22:00 | NUR ---
ASSESSMENT, VS AND I&O COMPLETED. PT REPOSITIONED. PAIN MED PROVIDED. SCHEDULED MEDS PROVIDED IJ LINE WNL, FLUSHED WELL. SPOUSE IN ROOM. ICE CHIPS PROVIDED. CALL LIGHT IN REACH.
[2025-06-30] VITALS (17 sets, daily range): BP systolic 106–127; BP diastolic 68–112
--- NOTE | 2025-06-30 00:16 | NUR ---
ASSESSMENT, VS AND I&O COMPLETED. NO CHANGES. PT IS RESTING IN BED, EYES CLOSED. RR EVEN, UNLABORED. IV FLUIDS INFUSING PER ORDER. PT DECLINES SCDs. IV WNL. BED ALARM ON, CALL LIGHT IN REACH.
--- NOTE | 2025-06-30 02:02 | NUR ---
SCHEDULED MED PROVIDED. IV WNL, PT ORIENTED TO PERSON AND PLACE ONLY. SHAKING NOTED. BED ALARM ON, CALL LIGHT IN REACH.
--- NOTE | 2025-06-30 02:25 | NUR ---
PT RESTLESS, TRYING TO GET OUT OF BED. CIWA 10, PRN MED PROVIDED. CALL LIGHT IN REACH, RAILS UP, BED ALARM ON.
--- NOTE | 2025-06-30 04:29 | NUR ---
ASSESSMENT, VS AND I&O COMPLETED. PT UP TO BSC AND BACK TO BED 2 PA. PT TOLERATED FAIR, VERY WEAK. PT RESTING IN BED AT THIS TIME. IV FLUIDS INFUSING PER ORDER. CALL LIGHT IN REACH, RAILS UP, BED ALARM ON.
--- NOTE | 2025-06-30 05:00 | NUR ---
PT SPO2 RANGING NEAR 88% ON RA WHILE SLEEPING. PT PLACED ON 2L NC, SPO2 UP TO 94%. PT ENCOURAGED TO USE CPT DEVICE. CALL LIGHT IN REACH, RAILS UP, BED ALARM ON.
[2025-06-30 05:29] LABS: BASOPHILS 0.1 % (0.2-1.2); EOSINOPHILS 0 % (0.8-7.0); LYMPHOCYTES 6.6 % (21.8-53.1); MCH 35.8 PG (25.7-32.2); MCHC 36.0 g/dL (32.3-36.5); MCV 99.4 fL (79.0-92.2); MONOCYTES 8.1 % (5.3-12.2); NEUTROPHILS 84.2 % (34.0-67.9); RBC 3.24 M/uL (4.63-6.08)
[2025-06-30 05:42] LABS: ALT (SGPT) 27.0 U/L (14-59); AST (SGOT) 57.0 U/L (15-37); GLOMERULAR FILTRATION RATE,EST 127.0 mL/min (>60); PROTEIN, TOTAL 5.6 g/dL (6.4-8.2); UREA NITROGEN 11.0 mg/dL (7-18)
[2025-06-30 05:44] LABS: INR 2.41 (0.80-1.30); PROTIME 25.5 Sec (11.2-14.2)
--- NOTE | 2025-06-30 06:42 | NUR ---
PT RESTING IN BED, CALL LIGHT IN REACH. RR EVEN, UNLABORED. BED ALRM ON, RAILS UP.
--- NOTE | 2025-06-30 07:30 | NUR ---
REPORT RECEIVED FROM JIMENEZ RICH, PT RESTING IN BED, LOOKS RESTFUL, BED ALARM ON.
[2025-06-30] MEDS ORDERED: POTASSIUM CHLORIDE 10 MEQ TABCR PO ONE (08:00)
[2025-06-30] MEDS ORDERED: SPIRONOLACTONE 25 MG TAB PO SCH (09:00)
--- NOTE | 2025-06-30 10:21 | NUR ---
ABDOMINAL PRESSURE DONE, 16-18MMHG.
--- NOTE | 2025-06-30 14:14 | NUR ---
PT HAS BEEN MOSTLY SLEEPING BUT DOES WAKE INTERMITTENTLY TO TURN HIMSELF IN BED, OCCASIONALLY PULLING AT IV LINES, CATHETER AND MONITOR CORDS. HE DOES COOPERATE WITH REDIRECTION. BED ALARM ON.
--- NOTE | 2025-06-30 16:30 | NUR ---
2MG IV MORPHINE GIVEN FOR ABDOMINAL PAIN, PT GRIMACING, NODS YES WHEN ASKED IF HE IS IN PAIN AND IF IT IS HIS ABDOMEN, UNABLE TO RATE.
--- NOTE | 2025-06-30 17:07 | NUR ---
DR BARAKAT IN TO SPEAK WITH ABOUT PLAN OF CARE.
--- NOTE | 2025-06-30 19:00 | NUR ---
PT STATES YES WHEN ASKED IF HE IS NAUSEATED, 4MG IV ZOFRAN GIVEN.
[2025-06-30] MEDS ORDERED: PIPERACILLIN/TAZOBACTAM 4.5 GM in DEXTROSE 5% 100 ML IV ONE (20:15)
--- NOTE | 2025-06-30 21:00 | NUR ---
TRYED TO GET PT TO TAKE ORAL MEDICATIONS, PT WAS UNABLE TO FOLLOW DIRECTIONS TO SUCK ON THE STRAW. PT HAD LARGE LIQUID BM ALSO AT THIS TIME, COMPLETE LINE AND BEDBATH GIVEN AT THIS TIME. NOTIFED ALSO PT UNABLE TO TAKE MEDICATIONS. PT HAD BLOOD CULTURES DRAWN AT ABOUT 1930. 2129 TALKED WITH PT René PARRA ON THE PHONE ALL QUESTIONS ANSWERED.
--- NOTE | 2025-06-30 21:45 | NUR ---
MEDICATED WITH 2MG MORPHINE AT THIS TIME DUE TO PT STATES "I FEEL LIKE SHIT".
--- NOTE | 2025-06-30 22:10 | NUR ---
PT APPEARS TO BE COMFORTABLE AND RESTING AT THIS TIME SPO2 DECREASED TO 86 % ON ROOM AIR SO PLACED 2L'S VIA NC AND SPO2 INCREASED TO 96 TO 99% AT TIMES.
--- NOTE | 2025-06-30 23:37 | NUR ---
PT APPEARS TO BE COMFORTABLE AT THIS TIME. SPO2 97% ON 2L'S. HAYES DRAINING JOHN IN COLOR URINE.
[2025-07-01] VITALS (19 sets, daily range): BP systolic 97–121; BP diastolic 66–88
[2025-07-01] MEDS ORDERED: PIPERACILLIN/TAZOBACTAM 4.5 GM in DEXTROSE 5% 100 ML IV SCH
--- NOTE | 2025-07-01 00:15 | NUR ---
PT HAD BM, ABLE TO GET PT CHANGED AND CLEAN UP WITH ONE PERSON, BUT PT DID PUSH AGAINST STAFF WHEN TURNING HIM. PT DOES NOT OPEN EYES WHEN SPOKEN TOO, HE WAS TELLING STAFF TO STOP WHEN CLEANING UP BM. EXPLAINED TO PT WHAT I WAS DOING THEN HE STOPED TALKING.
[2025-07-01 05:37] LABS: BASOPHILS 0.2 % (0.2-1.2); EOSINOPHILS 0 % (0.8-7.0); LYMPHOCYTES 5.5 % (21.8-53.1); MCH 35.8 PG (25.7-32.2); MCHC 35.2 g/dL (32.3-36.5); MCV 101.8 fL (79.0-92.2); MONOCYTES 7.6 % (5.3-12.2); NEUTROPHILS 86.1 % (34.0-67.9); RBC 3.41 M/uL (4.63-6.08)
[2025-07-01 05:52] LABS: INR 2.18 (0.80-1.30); PROTIME 23.5 Sec (11.2-14.2)
[2025-07-01 05:55] LABS: ALT (SGPT) 33.0 U/L (14-59); AST (SGOT) 55.0 U/L (15-37); GLOMERULAR FILTRATION RATE,EST 118.0 mL/min (>60); PROTEIN, TOTAL 5.6 g/dL (6.4-8.2); UREA NITROGEN 12.0 mg/dL (7-18)
--- NOTE | 2025-07-01 06:36 | NUR ---
PT DRANK HIS ENSURE AND THAT IS ALL HE HAS ALL FOR THIS SHIFT. HE HAS SLEPT ALL OF THE SHIFT, HAS HAD THREE BM'S LIQUID STOOLS. HAYES DRAINING THICK URINE.
--- NOTE | 2025-07-01 07:18 | NUR ---
REPORT GIVEN TO DAY SHIFT ALL QUESTIONS ANSWERED.
--- NOTE | 2025-07-01 07:30 | NUR ---
REPORT RECEIVED FROM JOSIAH RICH. 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
[2025-07-01] MEDS ORDERED: POTASSIUM CHLORIDE 40 MEQ,LIDOCAINE HCL 1% 40 MG in DEXTROSE 5% 250 ML IV ONE (07:45)
--- NOTE | 2025-07-01 08:15 | NUR ---
BREAKFAST BROUGHT IN TO PT, HE IS WANTING TO TRY EATING THIS MORNING. SITTER IN WITH PT FOR SAFETY.
--- NOTE | 2025-07-01 08:34 | NUR ---
INTO ROOM FOR MEDICATION ADMINISTRATION. SITTER AT BEDSIDE, HELPING PT EAT BREAKFAST. PT MUMBLING SOME WORDS. PT ABLE TO FOLLOW COMMANDS FOR [employer] ARTISTIC DIRECTOR. CURTAIN OPEN, CALL LIGHT IN REACH
--- NOTE | 2025-07-01 08:48 | NUR ---
REPORT RECEIVED FROM JOSIAH RICH. 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
[2025-07-01] MEDS ORDERED: LACTULOSE 20 GM/30 ML CUP PO SCH (09:00)
--- NOTE | 2025-07-01 09:36 | NUR ---
PT AT BEDSIDE AT THIS TIME. PT OPENING EYES, SAYING FEW WORD SENTENCES. PT TEARFUL, PROVIDED WITH KLEENEX. PT ABLE TO TAKE SOME OF LACTULOSE, WANTING TO WAIT A BIT TO COMPLETE DOSE. CALL LIGHT IN REACH OF PT AND , SITTER OUTSIDE ROOM AT THIS TIME
--- NOTE | 2025-07-01 10:09 | NUR ---
PT AWAKE IN BED, AT BEDSIDE, HE IS TALKING WITH HER SOME.
--- NOTE | 2025-07-01 10:33 | NUR ---
PT NOT AVAILABLE FOR VISIT. PROVIDED PRAYER.
--- NOTE | 2025-07-01 13:11 | NUR ---
INTO SEE PATIENT. PATIENT KNOWS HE IS IN [place]. PATIENT KNEW HIS NAME MARILYN. PATIENT SHOOK HEAD TO WANTING COUNSELING SERVICES. SPOKE WITH . SHE HAS BEEN IN CONTACT WITH TONY. WOULD LIKE TO DISCUSS WITH THE PATIENT WHAT TYPE OF COUNSELING RESOURCES HE WOULD LIKE TO DO UPON DISCHARGE ONCE HE IS MORE ORIENTED.
--- NOTE | 2025-07-01 13:28 | NUR ---
PT REPORTS 9/10 PAIN IN ABDOMEN - 2MG MORPHINE ADMINISTERED, REPOSISTIONED.
--- NOTE | 2025-07-01 15:04 | NUR ---
PARENTS IN TO VISIT, PLAN OF CARE DISCUSSED WITH THEM AND QUESTIONS ANSWERED.
--- NOTE | 2025-07-01 16:40 | NUR ---
PT RESTLESS IN BED, SITTING UP, LYING BACK DOWN.
--- NOTE | 2025-07-01 17:28 | NUR ---
IN ROOM TO ASSIST PT WITH DINNER. PT SITTING IN BED WITH HEAD ELEVATED. WITH ASSISTANCE, PT WAS ABLE TO EAT 30% OF DINNER TRAY.
--- NOTE | 2025-07-01 20:18 | NUR ---
REPORT RECEIVED FROM CCU RN DONITA, ASSUMED CARE OF pt. pt RESTING IN BED AWAKE. VISITOR AT BEDSIDE. APPLE ENSURE PROVIDED PER pt REQUEST. BED ALARM ON. TELE LEADS FIXED pt REMOVED TWO LEADS.
--- NOTE | 2025-07-01 21:18 | NUR ---
IN ROOM FOR MEDICATION ADMINSTRATION. pt AWAKE, ALERT, ORIENTED TO PERSON, PLACE. REORIENTATION TO EXACT EVENT pt STATES "I GOT SICK", DATE AND TIME OF DAY. ASSESSMENT COMPLETE. BOWEL TONES ACTIVE, ABD DISTENDED, FIRM, ASCITES. HAYES EMPTIED, CONCENTRATED URINE. PO FLUIDS PROVIDED. IV SL WNL. EDUCATION PROVIDED REGARDING MEDICATIONS, pt COOPERATIVE. BROTHER AT BEDSIDE. SCDS APPLIED. BED ALARM ON. CALL LIGHT IN REACH.
--- NOTE | 2025-07-01 21:49 | NUR ---
pt'S BROTHER OUT OF ROOM. HAYES CARE COMPLETE AT THIS TIME. PRN MELATONIN ADMINISTERED. LIGHTS OFF IN ROOM. HOB LOWERED PER pt REQUEST. BED ALARM ON. SCDS ON. CALL LIGHT NEXT TO pt.
--- NOTE | 2025-07-01 22:50 | NUR ---
pt ROLLS TO RIGHT SIDE, HOB LOWERED BY RN. SCDS ON. IV SL, INTACT. pt DROWSY, CLOSING EYES. BED ALARM ON.
--- NOTE | 2025-07-01 23:59 | NUR ---
CHECKED ON pt. LYING ON BACK, 2L OXYGEN BY CN IN PLACE. SPO2 95%, HR 88 ON MONITOR. pt SNORING, NO DISTRESS NOTED.
[2025-07-02] VITALS (9 sets, daily range): BP systolic 96–124; BP diastolic 70–109
--- NOTE | 2025-07-02 01:18 | NUR ---
IN ROOM FOR MEDICATION ADMINISTRATION. pt AWAKE, TANGLED IN BLANKETS, SCDS, CARDIAC LEAD OFF. LEAD REPLACED, SCDS REMOVED PER pt REQUEST. ASSESSMENT COMPLETE. 60 MLS CONCENTRATED URINE EMPTIED FROM HAYES. pt THOUGHT HE HAD BM, ATTENDS CHECKED, DRY AT THIS TIME. pt CONFUSED, ORIENTED TO PERSON, PLACE, NOT EVENT, TIME, DATE. PRN LACTULOSE ADMINISTERED. IV MEDICATION ADMINISTERED WNL, IV ANTIBIOTIC NOW INFUSING ORDERED. WARM BLANKET PROVIDED. DRINK OF WATER PROVIDED. LIGHTS OFF IN ROOM. BED IN LOW POSITION, BED ALARM ON.
--- NOTE | 2025-07-02 02:31 | NUR ---
CALL LIGHT ANSWERED. pt DIFFICULT TO UNDERSTAND. ATTENDS OFF, STOOL IN ATTENDS. HANDS PULLING AT HAYES CATHETER. pt CLEANED, CATHETER CARE COMPLETE. 2PA TO PIVOT TO BSC. pt WEAK, GAIT UNSTEADY. LARGE LOOSE BM IN BSC. pt CLEANED UP. ATTENDS APPLIED. LINENS CHANGED. NEW STAT LOCK PLACED. 2PA BACK TO BED, pt ASSISTS WITH REPOSITIONING HIGHER IN BED. REFUSES SCDS "NO CORDS PLEASE". IV ANTIBIOTIC INFUSING WNL. BED ALARM ON. CALL LIGHT IN REACH.
--- NOTE | 2025-07-02 03:45 | NUR ---
CHECKED ON pt. RESTING IN BED ON RIGHT SIDE. BREATHING UNLABORED. 2L OXYGEN BY NC IN PLACE. NO DISTRESS NOTED.
[2025-07-02 05:23] LABS: BASOPHILS 0.1 % (0.2-1.2); EOSINOPHILS 0 % (0.8-7.0); LYMPHOCYTES 6.7 % (21.8-53.1); MCH 35.1 PG (25.7-32.2); MCHC 34.8 g/dL (32.3-36.5); MCV 100.9 fL (79.0-92.2); MONOCYTES 6.8 % (5.3-12.2); NEUTROPHILS 85.7 % (34.0-67.9); RBC 3.25 M/uL (4.63-6.08)
[2025-07-02 05:33] LABS: INR 2.19 (0.80-1.30); PROTIME 23.6 Sec (11.2-14.2)
--- NOTE | 2025-07-02 05:35 | NUR ---
IV ANTIBIOTIC COMPLETE. IV SL WNL. CIWA 8. pt REPORTS VISUAL HALLUCINATIONS, "SEEING FIGURES" WHEN EYES CLOSED. ATTENDS CHANGED, SMEAR OF LIQUID BM. HAYES EMPTIED, CONCENTRATED URINE. VSS. 2L OXYGEN BY NC IN PLACE. ASSESSMENT COMPLETE. pt DENIES ANY PAIN. REPOSITIONED IN BED, 2PA HIGHER IN BED. BED IN LOW POSITION. BED ALARM ON.
[2025-07-02 05:41] LABS: ALT (SGPT) 25.0 U/L (14-59); AST (SGOT) 48.0 U/L (15-37); GLOMERULAR FILTRATION RATE,EST 123.0 mL/min (>60); PROTEIN, TOTAL 5.4 g/dL (6.4-8.2); UREA NITROGEN 13.0 mg/dL (7-18)
--- NOTE | 2025-07-02 06:43 | NUR ---
CALL LIGHT ANSWERED. pt COMPLAINS OF NEEDING TO VOID. HAYES DRAINING CONCENTRATED URINE. pt PULLING AT TELE WIRES, BLOOD PRESSURE CUFF REMOVED, HANDS IN PANTS. PRN MORPHINE ANDMINISTERED FOR DISCOMFORT 4/10 WITH FLACC SCALE. BED ALARM ON.
--- NOTE | 2025-07-02 08:03 | NUR ---
REPORT RECEIVED FROM HILARIO RICHARD. PT AWAKE IN BED, DECLINED BLINDS OPEN. STATES HE SLEPT OK FIRST HALF AND THEN RN CHARTING WOKE PT UP FOR SECOND HALF.
--- NOTE | 2025-07-02 08:59 | NUR ---
PT UP TO BSC FOR BM- LIQUID. PT CONTINUES TO FIDDLE WITH HIS CATHETER AND STATES HE HATES IT. 2 PERSON ASSIST TO AND FROM BSC. TOLERATED WELL. EATING BREAKFAST ADMINISTERED MORNING MEDS. VS STABLE. RATES MID EPIGASTRIC PAIN 3\10
--- NOTE | 2025-07-02 09:24 | NUR ---
PT CONTINUES TO EAT BREAKFAST SLOWLY. DENIES NEEDING ASSISTANCE.
--- NOTE | 2025-07-02 09:44 | NUR ---
LAB IN ROOM TO DRAW AMMONIA. PT HAD REMOVED BP CUFF AND O2 MONITOR. WAS PLAYING WITH GOWN AND LEADS. ADVISED TO LEAVE ALL THINGS ALONE AND PUT BACK ON. PT APOLOGIZED AND ASKE DFOR HIS MILK.
[2025-07-02] MEDS ORDERED: POTASSIUM CHLORIDE 40 MEQ,LIDOCAINE HCL 1% 40 MG in DEXTROSE 5% 250 ML IV ONE (09:45)
--- NOTE | 2025-07-02 10:30 | NUR ---
Spoke with Marc and his . Pt finishing working with PT/OT. Pt able to stand holding onto a walker with 2 person assist and walk in place. Pt weak. Spoke with pt and about plan when pt discharges. Pt is agreeable to placement at [facility] as his is a an aid there. Pt also would like to speak with someone about alcohol rehab. I will contact [facility].
--- NOTE | 2025-07-02 10:54 | NUR ---
PT UP TO CHAIR WITH PT\OT. IN ROOM. PT SPOKE WITH HARLEY DE PAZ AND IS A LITTLE TEARY.
--- NOTE | 2025-07-02 11:22 | NUR ---
PT UP TO BSC FOR BM. BACK TO CHAIR, EMPTIED HAYES FOR 900. WASHED PT HAIR AND COMBED.
--- NOTE | 2025-07-02 11:41 | NUR ---
PT NOT AVAILABLE FOR VISIT. PROVIDED PRAYER.
--- NOTE | 2025-07-02 12:21 | NUR ---
PT SITTING UP IN CHAIR, EATING LUNCH. SPEECH THERAPY AT BEDSIDE. CALL LIGHT IN REACH
[2025-07-02] MEDS ORDERED: FUROSEMIDE 40 MG/4 ML VIAL IV SCH (13:00)
--- NOTE | 2025-07-02 13:02 | NUR ---
PT SITTING UP IN CHAIR VISITING WITH FAMILY. JUST FINISHED EATING LUNCH AND WAS ABLE TO EAT ALL OF IT. SCHEDULED MEDS ADMINISTERED. IV POTASSIUM INFUSING.
--- NOTE | 2025-07-02 13:37 | NUR ---
PT ASSISTED BACK TO BED AFTER FAMILY LEFT. TOLEATED WELL. GIVEN WARM BLANKET. PT REPORTS SEEING FLOATERS IN HIS EYES, DENIES HEADACHE OR ANY OTHER WITHDRAWL SYMPTOM. SCORES 1 ON CIWA. WOULD LIKE TO TAKE A NAP.
--- NOTE | 2025-07-02 14:10 | NUR ---
PT RESTING IN BED WITH EYES CLOSED. CALL LIGHT IN REACH.
--- NOTE | 2025-07-02 16:04 | NUR ---
PT AWAKE AND HAS HIS FAMILY IN ROOM. ASKED FOR NEB TREATMENT FOR SOB. LUNG SOUNDS CLEAR. STATES HE USES AN INHALER AT HOME. HOOKED TO SCHEDULED AB. PT A LITTLE MORE CONFUSED THIS AFTERNOON THAN EARLIER TODAY. ASKING QUESTIONS THAT AREN'T ORIENTED TO TIME AND SITUATION. ASKING IF HIS DTR CAN TAKE RANDOM THINGS IN ROOM HOME.
--- NOTE | 2025-07-02 16:10 | NUR ---
Spoke contacted Maverick from [facility]. He will visit [facility] around 5 pm tonight.
--- NOTE | 2025-07-02 17:51 | NUR ---
PT SITTING IN BED PLAYING ON PHONE AND EATING DINNER. DENIES NEEDS ATT. FAMILY WENT HOME. SCHEDULED MEDS ADMINISTERED.
--- NOTE | 2025-07-02 18:51 | NUR ---
PT UP TO BSC FOR ANOTHER LIQUID STOOL. BROTHER IN ROOM. WAS A LITTLE WEAKER THAN EARLIER TODAY. DID EAT DINNER WELL, GIVEN MORE ICE WATER AND JUICE.
--- NOTE | 2025-07-02 19:30 | NUR ---
HANDOFF REPORT RECEIVED BY DAY SHIFT RN. PATIENT SITTING UP AWAKE IN BED, WITH FRIEND AT BEDSIDE. NO ACUTE DISTRESS NOTED. PATIENT HAS NO NEEDS AT THIS TIME. CALL LIGHT IN REACH.
--- NOTE | 2025-07-02 20:01 | NUR ---
PATIENT ASSESSMENT COMPLETE. PATIENT ALERT AND ORIENTED, BUT SLOW TO RESPOND. PATIENT RR EVEN AND UNLABORED. SPO2 93% ON RA, AND TOLERATING WELL. HR 100'S, ST. ABDOMEN NOTED TO BE MODERATELY DISTENDED AND FIRM TO PALPATION. R. FA IV SITE INTACT AND WNL. PATIENT DENIES NAUSEA. HAYES CARE COMPLETE. PATIENT C/O DISCOMFORT W/ CATHETER. PATIENT UPDATED ON POC. BROTHER AT BEDSIDE. PATIENT DENIES ANY NEEDS AT THIS TIME. CALL LIGHT IN REACH.
--- NOTE | 2025-07-02 21:29 | NUR ---
MEDICATIONS ADMINISTERED PER EMAR. VITAL SIGNS STABLE. HAYES INTACT. IV SITE INTACT AND WNL. PATIENT DENIES NEEDS AT THIS TIME AND STATES, "I AM GOING TO SLEEP". NO EVIDENCE OF ACUTE DISTRESS NOTED. BED ALARM ON , CALL LIGHT IN REACH.
--- NOTE | 2025-07-02 22:50 | NUR ---
STAFF IN ROOM. PATIENT REPOSITIONED IN BED. PATIENT HAYES INTACT AND WNL. PATIENT UPDATED ON POC. PATIENT DENIES NEEDS AT THIS TIME. VITAL SIGNS STABLE. BED ALARM ON, CALL LIGHT IN REACH
--- NOTE | 2025-07-02 23:45 | NUR ---
PATIENT DESATURATES TO 88% WHILE ASLEEP. 1L NC PLACED, SPO2 NOW 93%. PATIENT TOLERATING WELL. RR EVEN AND UNLABORED. BED ALARM ON, CALL LIGHT IN REACH
[2025-07-03] VITALS (10 sets, daily range): BP systolic 94–107; BP diastolic 61–76
--- NOTE | 2025-07-03 00:22 | NUR ---
CALL PLACED TO DR. BARAKAT. NOTIFIED OF HAYES CATHETER LEAKING AND PATIENT HAVING INCREASING DISCOMFORT. NEW ORDER RECEIEVED TO IN HAYES.
--- NOTE | 2025-07-03 00:40 | NUR ---
PATIENT HAYES DC'D PER MD ORDER. PATIENT TOLERATED WELL. PATIENT PROVIDED URINAL PER PATIENT REQUEST. PATIENT ABLE TO VOID 25 ML OF CLEAR YELLOW URINE. NEW BRIEF AND CHUCKS PAD PLACED. PATIENT DENIES FURTHER NEEDS. BED ALARM ON, CALL LIGHT IN REACH.
--- NOTE | 2025-07-03 01:05 | NUR ---
PATIENT ASSESSMENT COMPLETE. ASSESSMENT UNCHANGED. IV ABX ADMINISTERED PER EMAR. IV SITE INTACT AND WNL. VITAL SIGNS STABLE. NO EVIDENCE OF ACUTE DISTRESS NOTED. BED ALARM ON, CALL LIGHT IN REACH
--- NOTE | 2025-07-03 02:16 | NUR ---
patient resting in bed. SPO2 92% on 1L NC. no evidence of acute distress noted. call light in reach, bed alarm on.
--- NOTE | 2025-07-03 03:51 | NUR ---
PATIENT RESTING IN BED. SPO2 93% ON 1 LNC. NO EVIDENCE OF ACUTE DISTRESS NOTED. BED ALARM ON, CALL LIGHT IN REACH
--- NOTE | 2025-07-03 04:15 | NUR ---
PATIENT ASSESSMENT COMPLETE. ASSESSMENT UNCHANGED. PATIENT DROWSY BUT AROUSABLE TO VERBAL STIMULI. IV ABX INFUSION COMPLETE PER EMAR. PATIENT DENIES NEEDS AT THIS TIME. NO EVDIENCE OF ACUTE DISTRESS NOTED. CALL LIGHT IN REACH, BED ALARM ON.
[2025-07-03 05:28] LABS: BASOPHILS 0.1 % (0.2-1.2); EOSINOPHILS 0 % (0.8-7.0); LYMPHOCYTES 8.6 % (21.8-53.1); MCH 35.1 PG (25.7-32.2); MCHC 35.4 g/dL (32.3-36.5); MCV 99.0 fL (79.0-92.2); MONOCYTES 7.6 % (5.3-12.2); NEUTROPHILS 83.2 % (34.0-67.9); RBC 3.08 M/uL (4.63-6.08)
[2025-07-03 05:41] LABS: INR 2.12 (0.80-1.30); PROTIME 22.5 Sec (11.2-14.2)
[2025-07-03 05:52] LABS: ALT (SGPT) 41.0 U/L (14-59); AST (SGOT) 76.0 U/L (15-37); GLOMERULAR FILTRATION RATE,EST 117.0 mL/min (>60); PROTEIN, TOTAL 5.3 g/dL (6.4-8.2); UREA NITROGEN 14.0 mg/dL (7-18)
--- NOTE | 2025-07-03 06:28 | NUR ---
PATIENT VOIDED 125 ML OF URINE USING THE URINAL W/ ASSISTANCE FROM MASTIC WORKER. PATIENT BRIEF NOTED TO BE SATURATED W/ URINE. NEW BRIEF, GOWN, AND LINENS PLACED. SPO2 93% ON 2L NC. PATIENT DENIES NEEDS AT THIS TIME. NO EVDIENCE OF ACUTE DISTRESS NOTED. BED ALARM ON, CALL LIGHT IN REACH
--- NOTE | 2025-07-03 08:46 | NUR ---
PATIENT RESTING IN BED WITH EYES CLOSED, RESPIRATIONS EVEN AND UNLABORED, RR 13, O2 SATURATION 93% ON 2L NC. ALLOWING PATIENT TO SLEEP BEFORE DOING MORNING MEDICATIONS AND BREAKFAST. CALL LIGHT AND PERSONAL BELONGINGS ARE WITHIN REACH.
--- NOTE | 2025-07-03 09:09 | NUR ---
CLINICALS FAXED TO [facility] FOR [facility] REFERRAL.
--- NOTE | 2025-07-03 09:18 | NUR ---
PATIENT IN BED WITH HOB ELEVATED, BREAKFAST TRAY IN FRONT OF PATIENT. SPEECH THERAPY AT THE BEDSIDE. PATIENT CONCERNED ABOUT HIS RECTUM AND PENIS. HE STATED "DID THEY SEW UP MY TIP?". i EDUCATED HIM ON THE REMOVAL OF THE HAYES CATHETER AND OFFERED TO LOOK AT HIS PENIS AND RECTUM, HE COMMUNICATED HE WANTS THAT DONE LATER. PATIENT DENIES PAIN IN THE RECTAL OR PENIS AREA. PATIENT DENIES FUTHER NEEDS AT THIS TIME. PATIENT IS PLEASANT, BUT DOES NOT ALWAYS ANSWER QUESTIONS APPROPRIATELY.
--- NOTE | 2025-07-03 11:40 | NUR ---
Spoke with Jason and his . They are working on paper work to work with [facility] for his alcohol addiction. Pt states their meeting went very well last night and he was encouraged by Maverick from [email or web address]. He wants to work with their program. states she does not have his wallet and needs his insurance info and a list of meds. I printed and gave them to add to their paper work. Pt denies other needs at this time. DC in 1-2 days. Cont. to plan to dc to [place] on discharge.
--- NOTE | 2025-07-03 14:01 | NUR ---
PT NOT AVAILABLE FOR VISIT. PROVIDED PRAYER.
--- NOTE | 2025-07-03 15:27 | NUR ---
UR CONCURRENT REVIEW: MCG-PER MCG REVIEW DOES NOT MEET GL DAY2 DUE TO CONTINUED NEED FOR OXYGEN AT 2L. [facility] 07/08/25
--- NOTE | 2025-07-03 16:02 | NUR ---
PATIENT AMBULATED TO THE SINK IN THE ROOM TO WASH HANDS AND FACE WITH SBA AND FWW. PATIENT DENIED DIZZINESS OR SOB. PATIENT'S SATURATION WAS IN THE HIGH 80S- MID 90S WITH 3-4L NC. TOLERATED WELL, FEELS MUSCLE WEAKNESS AND TIGHT PAIN IN HIS LEGS WHEN HE FIRST STARTS WALKING. PATIENT RESPONDS TO QUESTIONS APPROPRIATELY AND IS ALERT AND ORIENTED TIMES FOUR. PATIENT HAS GOTTEN UP TO THE COMMODE THREE TIMES AND TO THE TOILET ONCE TODAY. PATIENT HAS HAD MANY 4 BOWEL MOVEMENTS AND YELLOW- CLEAR URINE VOIDS. VICKY SHARPE, BED BATH, AND GOWN CHANGE DONE WITH PATIENT. PATIENT DID MOST OF THE BED BATH INDEPENDENTLY. CALL LIGHT AND PERSONAL BELONGINGS ARE WITHIN REACH.
--- NOTE | 2025-07-03 16:35 | CONS ---
[facility] [address], [place] [address] Signed DATE OF CONSULTATION: 06/30/2025 REQUESTING PHYSICIAN: Dr. Robert. ISSUE: Consideration for paracentesis for ascites. HISTORY OF PRESENT ILLNESS: This 45-year-old man has end-stage alcoholic cirrhosis with ascites and was admitted to the hospital having presented to the emergency room on June 23, 2025, evaluated initially by Dr. Mauro Elizabeth. He was noted to have COVID two weeks prior to his admission, but he was noting abdominal distention over recent days with legs edematous and jaundice. He is a regular heavy drinker of alcohol and has had episodic rectal bleeding. An ultrasound was performed at time of presentation showing heterogeneous liver parenchyma with a nodular surface consistent with cirrhosis. Small volume ascites was noted in all four quadrants and uncomplicated gallstones were also noted. The patient was admitted by Dr. Shea with a history of alcohol use disorder, alcohol withdrawal, and illicit drug use and admitted for "alcoholic hepatitis." He has a MELD score determined to be 26. He is noted to be thrombocytopenic with platelets of 46,000, elevated ammonia of 38 and with alcohol withdrawal concerns. Care was assumed by Dr. Robert following Dr. Shah and Dr. Robert does inquire regarding the need for paracentesis. The bladder pressure was undertaken, noted to be 16 mmHg. The patient is responsive to Lasix and spironolactone which he has been given. An ultrasound was performed yesterday showing a large amount of ascites and indicative of ineffective diuretic therapy. He was begun on steroids as regards the thrombocytopenia and his platelets yesterday were measured at 62,000. His white count is 6.5, hematocrit 30.3. Ammonia level now 48 and albumin 2.1. Nurses report that he does not have overt dyspnea at this time. He has had behavioral issues and is currently in a slightly Trendelenburg position right side down. PHYSICAL EXAMINATION: GENERAL: A defunct white man who is minimally interactive. He is able to follow commands to some degree. HEENT: Mucous membranes are quite dry. ABDOMEN: He has a cachectic body habitus generally speaking, though ascites of the abdomen is quite obvious as well. He does not have tenderness of the abdomen so far as can be told. EXTREMITIES: Lower extremities show edema. Electronically Signed By: JENA VALENTIN MD 07/03/25 1635 PATIENT NAME: JOSSELIN MCCRACKEN CONSULTATION DATE OF : 84 REPORT #: [id number] PHYSICIAN: JENA VALENTIN MD PCP: NEENA JONES MD REPORT IS CONFIDENTIAL AND NOT TO BE RELEASED WITHOUT AUTHORIZATION [facility] [address], [place] [address] Signed LABORATORY DATA: Lab studies today shows a white count of 7.98 with hematocrit 32.2, platelets 71,000. Chemistries show a sodium of 141. Coag studies show INR of 2.41, indicative of hepatic insufficiency. Serologic studies show negative hepatitis B surface antigen. Creatinine today is 0.54. ASSESSMENT: The patient has ascites, which has worsened since his hospitalization overall. Efforts at diuresis have been undertaken and an increase in dose of spironolactone and Lasix has been initiated. The patient is not severely dyspneic, though has some decreased saturations. This might be improved by simple adjustment of his bed. His head of bed elevated and I discussed that with nurses. Paracentesis certainly can be undertaken for a therapeutic benefit and I will review it further with Dr. Robert to perform today or tomorrow depending on his perception of urgency for it. He does not show signs of sepsis to suggest this represents infection of ascites fluid. One needs to be quite mindful of his coagulation status, having quite abnormal INR as well as thrombocytopenia for which the added risks of paracentesis are significant as regards bleeding. Most of the time it can be undertaken without problem of course. MD TREV Baez/EDL /[id number] cc: Dr. Monse Robert Copies: ~ Electronically Signed By: JENA VALENTIN MD 07/03/25 1635 PATIENT NAME: JOSSELIN MCCRACKEN CONSULTATION DATE OF : 84 REPORT #: [id number] PHYSICIAN: JENA VALENTIN MD PCP: NEENA JONES MD REPORT IS CONFIDENTIAL AND NOT TO BE RELEASED WITHOUT AUTHORIZATION
[2025-07-03] MEDS ORDERED: IBUPROFEN 600 MG TAB PO ONE (17:15)
--- NOTE | 2025-07-03 19:48 | NUR ---
HANDOFF REPORT RECEIVED FROM DAY SHIFT RN. ALL QUESTIONS ANSWERED. PATIENT RESTING IN BED. NO EVIDENCE OF ACUTE DISTRESS NOTED. CALL LIGHT IN REACH.
--- NOTE | 2025-07-03 21:30 | NUR ---
PATIENT ASSESSMENT COMPLETE. PATIENT ALERT AND ORIENTED. RR EVEN AND UNLABORED. LUNG SOUNDS CLEAR IN THE UPPER LOBES AND AND DIMINISHED IN THE BILATERAL LOWER LOBES. BOWEL SOUNDS HYPERACTIVE. ABDOMEN FIRM, MODERATE DISTENTION NOTED. PATIENT DENIES ABDOMINAL TENDERNESS. PATIENT DENIES PAIN, NAUSEA, OR MONTESINOS. 2+ EDEMA NOTED IN THE BLE. SCDS PLACED. PATIENT UP TO BSC, 1 PA W/ FWW. NEW BRIEF PLACED. PATIENT VOIDED 450ML OF URINE MIXED W/ STOOL. PATIENT BACK TO BED. VITAL SIGNS STABLE. IV SITE INTACT AND WNL. PATIENT PROVIDED APPLE JUICE. NO FURTHER NEEDS IDENTIFIED. BED ALARM ON, CALL LIGHT IN REACH.
--- NOTE | 2025-07-03 22:12 | NUR ---
patient resting in bed. spo2 93% on RA. no evidence of acute distress noted. call light in reach, bed alarm on
--- NOTE | 2025-07-03 23:17 | NUR ---
patient awake in bed talking to his on the phone. patient denies needs at this time. RR even and unlabored. bed alarm on, call light in reach
[2025-07-04] VITALS (7 sets, daily range): BP systolic 98–119; BP diastolic 63–75
--- NOTE | 2025-07-04 00:04 | NUR ---
IV ABX INFUSING PER EMAR. PATIENT DENIES NEEDS AT THIS TIME. SPO2 91% ON RA. NO EVIDENCE OF ACUTE DISTRESS NOTED. BED ALARM ON, CALL LIGHT IN REACH
--- NOTE | 2025-07-04 01:40 | NUR ---
patient resting in bed. rr even and unlabored. spo2 91% on RA. no evidence of acute distress noted. bed alarm on, call light in reach
--- NOTE | 2025-07-04 01:58 | NUR ---
PATIENT ASSESSMENT COMPLETE. RR EVEN AND UNLABORED. SPO2 92% ON RA. VITAL SIGNS STABLE. [place] [facility] W/ FWW. PATIENT ABLE TO VOID AND HAVE SMALL LIQUID BOWEL MOVEMENT. PATIENT BACK TO BED. BOWEL TONES HYPERACTIVE. ABDOMEN FIRM AND NOTED TO BE MODERATELY DISTENED. PATIENT DENIES NAUSEA. NO EVIDENCE OF ACUTE DISTRESS NOTED. NO NEEDS IDENTIFIED. CALL LIGHT IN REACH, BED ALARM ON.
--- NOTE | 2025-07-04 04:22 | NUR ---
PATIENT RESTING IN BED. SPO2 91% ON RA. NO EVIDENCE OF ACUTE DISTRESS NOTED. BED ALARM ON, CALL LIGHT IN REACH
[2025-07-04 05:27] LABS: BASOPHILS 0.1 % (0.2-1.2); EOSINOPHILS 0 % (0.8-7.0); LYMPHOCYTES 7.5 % (21.8-53.1); MCH 35.4 PG (25.7-32.2); MCHC 35.8 g/dL (32.3-36.5); MCV 99.0 fL (79.0-92.2); MONOCYTES 7.8 % (5.3-12.2); NEUTROPHILS 84.1 % (34.0-67.9); RBC 2.91 M/uL (4.63-6.08)
[2025-07-04 05:46] LABS: ALT (SGPT) 48.0 U/L (14-59); AST (SGOT) 83.0 U/L (15-37); GLOMERULAR FILTRATION RATE,EST 118.0 mL/min (>60); PROTEIN, TOTAL 5.3 g/dL (6.4-8.2); UREA NITROGEN 11.0 mg/dL (7-18)
[2025-07-04 06:08] LABS: INR 2.35 (0.80-1.30); PROTIME 24.4 Sec (11.2-14.2)
--- NOTE | 2025-07-04 06:35 | NUR ---
PATIENT ASSISTED UP TO BSC. 1 PA W/ FWW. NEW BRIEF AND GOWN PLACED. PATIENT PROVIDED WARM WASH RAG FOR FACE. PATIENT BACK TO BED. PATIENT VOIDED 650 MIXED W/ STOOL. PATIENT PROVIDED SHAMPOO CAP. PATIENT PROVIDED APPLE JUICE. VITAL SIGNS STABLE. PATIENT UPDATED ON POC. PATIENT DENIES FURTHER NEEDS AT THIS TIME. PATIENT SITTING UP IN BED WATCHING TV. BED ALARM ON, CALL LIGHT IN REACH
--- NOTE | 2025-07-04 07:30 | NUR ---
REPORT FROM HOSPITAL ACCOUNT MANAGER, PT IN BED RESTING THEN GETS UP WITH FWW AND ASSIST TO CHAIR FOR MEAL WITH THIS RN. CALL LIGHT IN REACH - DENIES NEEDS.
[2025-07-04] MEDS ORDERED: predniSONE 20 MG TAB PO SCH (09:00)
[2025-07-04] MEDS ORDERED: FUROSEMIDE 40 MG TAB PO SCH (09:00)
--- NOTE | 2025-07-04 09:03 | NUR ---
PT WORKED WITH PT AND IS NOW IN BED WITH ALARM ON. ST IN TO SEE PT AND DR AND RN IN ROOM WITH PT. CALL LIGHT IN REACH.
--- NOTE | 2025-07-04 09:15 | NUR ---
dr darling here in room with pt. rn present. pt alert and talkative, oriented. call light in reach.
--- NOTE | 2025-07-04 11:15 | NUR ---
dc farm planner in with pt. call light in reach
--- NOTE | 2025-07-04 11:30 | NUR ---
Spoke with Marc marti cont. to want to go to [facility]. I called [facility] earlier and I am waiting for a reply.
--- NOTE | 2025-07-04 12:23 | NUR ---
Notified by Nik at [facility], they are declining this pt for conflict of interest as his works there. Chart faxed to [facility] and [facility] in [place].
--- NOTE | 2025-07-04 13:42 | NUR ---
CALL LIGHT ANSWERED. pt HAD UNMEASURED LIQUID BM AND VOID. WASHES HANDS. 1P SBA FROM RESTROOM WITH FWW BACK TO BED. BED ALARM ON. SCDS ON.
--- NOTE | 2025-07-04 14:00 | NUR ---
Staffed this case with coworks. Stated my concern, this pt may be nearing end of life. I am concerned pt may not get to spend time with his family if he is place out of town. I will attempt to call the enterprise application administrator at [facility]. I called and spoke with Nik. She states their Pharmacognosist is not in today. She will have the front loader residential driver call me.
--- NOTE | 2025-07-04 14:56 | NUR ---
Received a call from [facility]. She does not feel they can accept this pt as his works there. They feel this would be a conflict of interest. Also there are concerns the pt may decline and they do not feel this would be fair to the pts to be there. There have also been issues in the past with the pts behaviors when he was drinking. Placement is declined. I had sent his chart to [facility] and [facility]. [facility] admission person is out today. [facility] sent a text they are declining this pt as they don't have beds. I called and left a message with [facility]. Pt's Ludmila called and I updated. She has also been called in by Admin and updated. She states her concern she will not be able to visit [facility] as she has two children and works. I encouraged her to go to [facility] and speak with them about being a state paid cg for [facility] and to also start the process for [place] [employer]. I did caution her this is a 40 day process. I will cont. to work on placement to a SNF for 20 days as this is what [facility] will cover.
--- NOTE | 2025-07-04 17:04 | NUR ---
PT ALERT AND CALM, VITALS WNL - EATING AND WATCHING TV. INSULIN 1 UNIT GIVEN, CALL LIGHT IN REACH.
--- NOTE | 2025-07-04 17:49 | NUR ---
PT RESTING IN BED AFTER DINNER. ALERT, SLEEPY - WANTS TO TAKE A NAP. BED ALARM ON. CALL LIGHT IN REACH.
--- NOTE | 2025-07-04 18:28 | NUR ---
REPORT TO DONAL [facility]LEY TO MED SURG.
--- NOTE | 2025-07-04 18:30 | NUR ---
RECIEVED REPORT FROM HILARIO DANIELS. PATIENT TO [facility] ROOM IN WHEELCHAIR, PT AMBULATES TO BED INDEPENDENTLY. VSS, PT STATES NO CURRENT NEEDS, CALL LIGHT WITHIN REACH.
--- NOTE | 2025-07-04 19:05 | NUR ---
REPORT RECEIVED FROM HILARIO MANSFIELD. pt RESTING IN BED AWAKE. BED ALARM ON. CALL LIGHT AND PERSONAL SUPPLIES WITHIN REACH.
--- NOTE | 2025-07-04 20:42 | NUR ---
CALL LIGHT ANSWERED. SBA TO RESTROOM WITH FWW FOR VOID AND BM. pt WASHES HANDS AND AMBULATES BACK TO BED. SCDS ON. ASSESSMENT COMPLETE. VSS. IV SL WNL. CALL LIGHT AND PERSONAL SUPPLIES WITHIN REACH.
--- NOTE | 2025-07-04 22:30 | NUR ---
pt SITTING AT SIDE OF BED VISITING WITH FAMILY. NO NEEDS AT THIS TIME.
[2025-07-05] VITALS (12 sets, daily range): BP systolic 105–122; BP diastolic 58–84
[2025-07-05] MEDS ORDERED: MAGNESIUM HYDROXIDE/AL HYDROX 30 ML CUP PO PRN (00:15)
--- NOTE | 2025-07-05 00:22 | NUR ---
CALL LIGHT ANSWERED. PRN HEARTBURN MEDICATION AND SLEEP MEDICATION ADMINISTERED. SBA WITH FWW TO RESTROOM FOR BM. VERALIZES UNDERSTANDING TO USE CALL LIGHT WHEN FINISHED.
--- NOTE | 2025-07-05 01:04 | NUR ---
Pt report received from HILARIO Galan.
[2025-07-05 05:29] LABS: BASOPHILS 0.2 % (0.2-1.2); EOSINOPHILS 0.1 % (0.8-7.0); LYMPHOCYTES 5.7 % (21.8-53.1); MCH 35.4 PG (25.7-32.2); MCHC 35.5 g/dL (32.3-36.5); MCV 99.7 fL (79.0-92.2); MONOCYTES 8.1 % (5.3-12.2); NEUTROPHILS 85.3 % (34.0-67.9); RBC 3.02 M/uL (4.63-6.08)
[2025-07-05 05:41] LABS: INR 2.07 (0.80-1.30); PROTIME 22.0 Sec (11.2-14.2)
[2025-07-05 05:45] LABS: ALT (SGPT) 51.0 U/L (14-59); AST (SGOT) 74.0 U/L (15-37); GLOMERULAR FILTRATION RATE,EST 127.0 mL/min (>60); PROTEIN, TOTAL 5.6 g/dL (6.4-8.2); UREA NITROGEN 11.0 mg/dL (7-18)
[2025-07-05] MEDS ORDERED: Rifaximin 550 MG TAB PO SCH (09:00)
--- NOTE | 2025-07-05 09:00 | NUR ---
PATIENT DECLINED AT [facility]. PATIENT DECLINED AT [facility] DUE TO NO BEDS.
--- NOTE | 2025-07-05 11:02 | NUR ---
CHART PENDING AT [facility]. SPOKE WITH PATIENT AND . UPDATED THEM
--- NOTE | 2025-07-05 11:58 | NUR ---
Pt is currently ambulating using the front wheeled walker, with physical therapy.
--- NOTE | 2025-07-05 12:05 | NUR ---
VISITED WITH PT WHILE AMBULATING IN WINTERS. PT EXPRESSED INTENT TO CONTINUE ON PATH TO RECOVERY, DESCRIBED VIVID DREAMS EARLIER IN HOSPITALIZATION, STATING, "SOME WERE BEAUTIFUL AND SOME WERE HORRIFYING." INTERACTED GENTLY WITH THERAPY ANIMAL. PRESENT, INDICATED NO NEEDS. WIRED SWEATBAND CUTTER PROVIDED SUPPORTIVE PRESENCE HOSPITALITY, PRAYER, FACILITATED INTERACTION WITH THERAPY ANIMAL.
--- NOTE | 2025-07-05 14:01 | NUR ---
PATIENT IS IN BED AT THIS TIME, PARENTS IN ROOM AT THIS TIME, CLINICAL SALES CONSULTANT CHARTED VITALS AND I&O'S, CALL LIGHT WITH IN REACH AND NOTHING ELSE NEEDED AT THIS TIME.
--- NOTE | 2025-07-05 15:32 | NUR ---
Patient awake sitting up in bed, alert and oriented x3. Patient denies acute concerns at this time. Respirations even and non labored.
--- NOTE | 2025-07-05 15:34 | NUR ---
PATIENT IN BED AT THIS TIME. STOGY MAKER ASSISTED PATIENT TO BATHROOM AND THEN BACK TO BED. CALL LIGHT WITHIN REACH. NO FURTHER NEEDS AT THIS TIME.
[2025-07-05] MEDS ORDERED: IBUPROFEN 600 MG TAB PO PRN (17:15)
--- NOTE | 2025-07-05 17:39 | NUR ---
Admin motrin 600mg po for reports of abdominal discomfort.
--- NOTE | 2025-07-05 18:36 | NUR ---
PATIENT IS IN BED AT THIS TIME, WIND PROJECT MANAGER ASSISTED PATIENT TO THE RESTROOM, HE GOT A BED BATH, WIND PROJECT MANAGER CHARTED VITALS AND I&O'S, CALL LIGHT WITH IN REACH AND NOTHING ELSE NEEDED AT THIS TIME.
--- NOTE | 2025-07-05 19:51 | NUR ---
RECEIVED REPORT FORM DAY SHIFT RN. PATIENT IS RESTING IN BED WATCHING TV. PATIENT DENIES ANY FURTHER NEEDS. CALL LIGHT IN REACH.
--- NOTE | 2025-07-05 21:26 | NUR ---
PATIENTS ASSSEMENT COMPLETED. PATIENT DENIES ANY PAIN OR NAUSEA. PATIENTS PM MEDS GIVEN PER ORDER. PATIENTS ABD NOTED TO BE DISTENDED. PATIENT DENIES ANY FURHTER NEEDS. CALL LIGHT IN REACH. IV FLUSHED AND SL PER ORDER.
--- NOTE | 2025-07-05 22:54 | NUR ---
ANSWERED BATHROOM LIGHT FOR ASSISTANCE BACK TO BED. PATIENT WAS ABLE TO AMBULATE WITH CANE, POSITION SELF IN BED. SCD'S PLACED, OUTPUT RECORDED ON BOARD, PATIENT WATCHING TV, NO OTHER NEEDS STATED AT THIS TIME, CALL LIGHT IN REACH.
--- NOTE | 2025-07-05 22:56 | NUR ---
PATIENT UP TO BR AND HAD LARGE BM AND ABLE TO VOID. PATIENT IS BACK IN BED RESTING. PATIENT GIVEN PRN SLEEP AID PER REQUEST. PATIENT GIVEN PRN MEDICATION FOR HEARTBURN PER REQUEST. PATIENT [ROVIDED FRESH ICE WATER AND JUICE. PATIENT DENIES ANY FURTHER NEEEDS. CALL [facility] IN REACH.
[2025-07-06] VITALS (8 sets, daily range): BP systolic 108–126; BP diastolic 67–81
--- NOTE | 2025-07-06 00:18 | NUR ---
PATIENT IS RESTING IN BED WITH EYES CLOSED, RR 15. NAD NOTED. CALL LIGHT IN REACH.
--- NOTE | 2025-07-06 02:13 | NUR ---
PATIENT IS RESTING IN BED WITH EYES CLOSED, RR 15. NAD NOTED. CALL LIGHT IN REACH.
--- NOTE | 2025-07-06 04:00 | NUR ---
PATIENT IS RESTING IN BED WITH EYES CLOSED, RR 15. NAD NOTED. CALL LIGHT IN REACH.
[2025-07-06 05:40] LABS: BASOPHILS 0.1 % (0.2-1.2); EOSINOPHILS 0.6 % (0.8-7.0); LYMPHOCYTES 6.4 % (21.8-53.1); MCH 35.8 PG (25.7-32.2); MCHC 36.4 g/dL (32.3-36.5); MCV 98.3 fL (79.0-92.2); MONOCYTES 7.6 % (5.3-12.2); NEUTROPHILS 84.7 % (34.0-67.9); RBC 2.96 M/uL (4.63-6.08)
[2025-07-06 06:07] LABS: ALT (SGPT) 57.0 U/L (14-59); AST (SGOT) 88.0 U/L (15-37); GLOMERULAR FILTRATION RATE,EST 120.0 mL/min (>60); PHOSPHORUS, INORGANIC 3.6 mg/dL (2.5-4.9); PROTEIN, TOTAL 5.6 g/dL (6.4-8.2); UREA NITROGEN 13.0 mg/dL (7-18)
--- NOTE | 2025-07-06 06:18 | NUR ---
PATIENTS VITALS TAKEN AND RECORDED. INTAKE AND OUTPUT RECORDED. PATIENT DENIES ANY PAIN. PATIENT ASSISTED TO PUT SWEATS ON. PATIENT AMBULATING IN ROOM. SNA REMAINS IN ROOM. PATIENT DENIES ANY FURTHER NEEDS. CALL LIGHT IN REACH.
--- NOTE | 2025-07-06 06:42 | NUR ---
BATTERY REPAIRER HELPED PT WALK THE WINTERS (ABOUT 200 FEET) AND BACK TO BED. BATTERY REPAIRER LEFT PT IN BED WITH ALARM ON AND CALL LIGHT WITHIN REACH.
--- NOTE | 2025-07-06 07:27 | NUR ---
Pt report received from HILARIO Menezes. Pt is resting supine in bed, eyes closed, breathing is regular, even, and non-labored. Side rails up x4, call light in reach. White board updated.
--- NOTE | 2025-07-06 07:47 | NUR ---
took blood sugar at 0745 it was 133 - not sure about input - there was an input at 0620 - checking with rn.
--- NOTE | 2025-07-06 10:23 | NUR ---
In with pt for consent for paracentesis. Pt verbalizes understanding and signs consent, this RN witnessed.
--- NOTE | 2025-07-06 11:03 | NUR ---
pt resting in bed, he got his clothing on this am because he reported being very cold, especially his legs. pt watching tv. no visitors in room. pt has water next to him and reports needing nothing more at this time. call light within reach.
--- NOTE | 2025-07-06 11:05 | NUR ---
PT REPORTED HAVING A SHOWER YESTERDAY AND NOT WANTING ONE TODAY. HE SAID HE IS JUST WAITING FOR THE DOCTOR - A PROCEDURE IS PLANNED.
--- NOTE | 2025-07-06 11:30 | NUR ---
In with pt and Dr. Shea for planned paracentesis. U/S in as well for visualization. 3800ml fluid removed from pt's abdomen. Pt tolerated procedure well. Pt's in the room during the procedure.
--- NOTE | 2025-07-06 14:26 | NUR ---
PT RESTING IN BED WITH HEAD UP. TV ON, VISITOR GONE. PT HAS DRINKS NEXT TO HIM AND IS REQUESTING NOTHING MORE AT THIS TIME. CALL LIGHT WITHIN REACH.
[2025-07-06] MEDS ORDERED: LACTULOSE 20 GM/30 ML CUP PO SCH (15:00)
[2025-07-06 15:59] LABS: PH, BODY FLUID 8.2
[2025-07-06] MEDS ORDERED: INSULIN LISPRO 100 UNIT/ML ML SUB-Q SCH ×2 (16:00→17:00)
[2025-07-06 16:06] LABS: APPEARANCE, BODY FLUID YELLOW, CLEAR
[2025-07-06 16:07] LABS: SOURCE, BODY FLUID Ascitic fluid
[2025-07-06 16:22] LABS: MONONUCLEAR CELLS, BODY FLUID 89 %; PMNS, BODY FLUID 11 %
[2025-07-06 16:23] LABS: RBC, BODY FLUID 410 /mm3; WBC, BODY FLUID 40 /mm3
--- NOTE | 2025-07-06 18:17 | NUR ---
PT SITTING UP IN THE ROOM, TALKING ON THE PHONE AND WATCHING TV. PT HAS A FULL GLASSS OF WATER NEXT TO HIS BED. THE CALL LIGHT IS ON HIS LAP, AND THE PT IS REPORTING NEEDING NOTHING MORE AT THIS TIME.
--- NOTE | 2025-07-06 19:53 | NUR ---
REPORT RECEIVED FROM HILARIO GARRETT. pt UP IN RESTROOM FOR VOID AND BM. SBA WITH CANE. BACK TO BED. ALLEVYN CHANGED AND REINFORCED WITH ABD PADS. IN ROOM.
--- NOTE | 2025-07-06 21:40 | NUR ---
pt AWAKE RESTING IN BED. CBG WNL. ASSESSMENT COMPLETE. pt ALERT AND ORIENTED TO ALL. IV SITE SL WNL. CALL LIGHT AND PERSONAL SUPPLIES WITHIN REACH. JUICE PROVIDED PER REQUEST.
--- NOTE | 2025-07-06 22:55 | NUR ---
IN ROOM FOR PRN SLEEP MEDICATION PER pt REQUEST. pt SITTING UP IN BED WATCHING TV, TALKING TO ON CELL PHONE. APPLE ENSURE PROVIDED. pt DENIES ADDITIONAL NEEDS. CALL LIGHT IN REACH.
[2025-07-07] VITALS (9 sets, daily range): BP systolic 106–115; BP diastolic 64–72
--- NOTE | 2025-07-07 00:16 | NUR ---
CHECKED ON Pt. RESTING IN BED AWAKE, TALKING TO ON PHONE. DENIES NEEDS AT THIS TIME. CALL LIGHT IN REACH.
--- NOTE | 2025-07-07 00:47 | NUR ---
CALL LIGHT ANSWERED. SBA WITH CANE TO RESTROOM FOR VOID AND BM. GAIT STEADY. pt VERBALIZES UNDERSTANDING TO USE CALL LIGHT WHEN FINISHED.
--- NOTE | 2025-07-07 01:10 | NUR ---
CALL LIGHT ANSWERED. SBA BACK TO BED FROM RESTROOM. UNMEASURED VOID AND LIQUID BM. WARM BLANKET PROVIDED, SCDS ON. CALL LIGHT AND PERSONAL SUPPLIES WITHIN REACH.
--- NOTE | 2025-07-07 03:18 | NUR ---
pt RESTING IN BED WITH EYES CLOSED. BREATHING UNLABORED. SCDS ON. NO DISTRESS NOTED.
[2025-07-07 05:23] LABS: BASOPHILS 0.2 % (0.2-1.2); EOSINOPHILS 1.5 % (0.8-7.0); LYMPHOCYTES 11.7 % (21.8-53.1); MCH 35.8 PG (25.7-32.2); MCHC 35.9 g/dL (32.3-36.5); MCV 99.7 fL (79.0-92.2); MONOCYTES 9.5 % (5.3-12.2); NEUTROPHILS 76.5 % (34.0-67.9); RBC 2.99 M/uL (4.63-6.08)
[2025-07-07 05:38] LABS: ALT (SGPT) 61.0 U/L (14-59); AST (SGOT) 80.0 U/L (15-37); GLOMERULAR FILTRATION RATE,EST 122.0 mL/min (>60); PROTEIN, TOTAL 5.5 g/dL (6.4-8.2); UREA NITROGEN 10.0 mg/dL (7-18)
--- NOTE | 2025-07-07 06:05 | NUR ---
ROUNDED ON pt, RESTING IN BED WITH EYES CLOSED. BREATHING EQUAL AND UNLABORED. NO DISTRESS NOTED.
--- NOTE | 2025-07-07 07:23 | NUR ---
REPORT RECEIVED FROM HILARIO RICHARD. PATIENT IN BED, EYES CLOSED, CHEST RISE EVEN AND UNLABORED. CALL LIGHT AND PERSONAL BELONGINGS IN REACH OF PATIENT. NO APPARENT NEEDS AT THIS TIME.
--- NOTE | 2025-07-07 07:35 | NUR ---
THIS MIXING AND DISPENSING SUPERVISOR IN TO DO MORNING BLOOD SUGAR, DONE AND CHARTED. PATIENT SITTING UP IN BED AT THIS TIME. WHITE BOARD UPDATED. CALL LIGHT IN REACH. NO FURTHER NEEDS AT THIS TIME.
[2025-07-07] MEDS ORDERED: predniSONE 20 MG TAB PO SCH (09:00)
--- NOTE | 2025-07-07 09:21 | NUR ---
PATIENT AMBULATING AROUND ROOM INDEPENDENTLY. THIS ROCK CLIMBING INSTRUCTOR IN TO DO VITALS AND I&O'S, DONE AND CHARTED. RN NOW IN ROOM. CALL LIGHT IN REACH. NO FURTHER NEEDS AT THIS TIME.
--- NOTE | 2025-07-07 10:05 | NUR ---
PATIENT IN BED. ASSESMENT COMPLETED. SCHEDULED MEDICATIONS ADMINISTERED. PATIENT PROVIDED WITH COFFEE AND FRESH WATER. CALL LIGHT AND PERSONAL BELONGIGNS IN REACH OF PATIENT. PATIENT DENIES FURTHER CONCERNS.
--- NOTE | 2025-07-07 11:29 | NUR ---
PATIENT IN BED, EYES OPEN, CHEST RISE EVEN AND UNLABORED. PATIENT DENIES CONCERNS. CALL LIGHT AND PERSONAL BELONGINGS IN REACH OF PATIENT.
--- NOTE | 2025-07-07 11:50 | NUR ---
PATIENT AMBULATING HALLS AND WORKING WITH PHYSICAL THERAPY AT THIS TIME.
--- NOTE | 2025-07-07 12:07 | NUR ---
PATIENT IN CHAIR, FAMILY AT BEDSIDE. LUNCH AT BEDSIDE. SCHEDULED MEDICATION ADMINISTERED. PATIENT DENIES CONCERNS.
--- NOTE | 2025-07-07 13:59 | NUR ---
NOTED SEROSANGUINEOUS DRAINAGE THROUGHT LEFT ABDOMINAL DRESSING. OLD DRESSING REMOVED. NOTED APPROXIMATED PUNCTURE WOUND, WEEPING MODERATE AMOUNT OF SEROSANGUINEOUS DRAINAGE. CLEANSED WITH NS AND PATTED DRY. OPTILOCK DRESSING APPLIED AND SECURED WITH TAPE. PT TOLERATED WELL.
--- NOTE | 2025-07-07 14:02 | NUR ---
PATIENT IN BED, FAMILY AT BEDSIDE. VITAL SIGNS COMPLETED. DRESSING IS SATURATED. DRESSING CHANGE COMPLETED. PATIENT DENIES FURTHER CONCERNS.
--- NOTE | 2025-07-07 14:55 | NUR ---
PATIENT IN BED, FAMILY AT BEDSIDE. CALL LIGHT AND PERSONAL BELONGINGS IN REACH OF PATIENT. SCHEDULED MEDICATIONS ADMINISTERED. PATIENT DENIES CONCERNS.
--- NOTE | 2025-07-07 15:48 | NUR ---
PATIENT IN BED, FAMILY AT BEDSIDE. CALL LIGHT AND PERSONAL BELONGINGS IN REACH OF PATIENT. PATIENT DENIES CONCERNS.
--- NOTE | 2025-07-07 16:38 | NUR ---
PATIENT CALL LIGHT ANSWERED. PATIENT INQUIRES ABOUT CASE MANAGMENT AVAILABILITY FOR DISCUSSION OF DISCAHRGE PLAN. I ADVISED PATIENT THAT CASE MANAGMENT IS SCHEDULED TO BE PRESENT TOMORROW. PATIENT VERBALIZED UNDERSTANDING. PATIENT DENIES FURTHER CONCERNS AT THIS TIME. CALL LIGHT AND PERSONAL BELONGINGS IN REACH OF PATIENT. FAMILY AT BEDSIDE.
--- NOTE | 2025-07-07 17:51 | NUR ---
PATIENT SITTING UP IN BED WATCHING TV AT THIS TIME. VITALS AND I&O'S DONE AND CHARTED. CALL LIGHT IN REACH. NO FURTHER NEEDS AT THIS TIME.
--- NOTE | 2025-07-07 17:55 | NUR ---
PATIENT IN BED, POLYMER ENGINEER AT BEDSIDE. PATIENT DENIES CONCERNS AT THIS TIME.
--- NOTE | 2025-07-07 19:36 | NUR ---
REPORT RECEIVED FROM HILARIO REYNOLDS AND HILARIO HOPKINS. PT RESTING IN BED, RESPIRATIONS EVEN AND UNLABORED. DENIES PAIN. DENIES NEEDS AT THE MOMENT. CALL LIGHT IN REACH.
--- NOTE | 2025-07-07 23:10 | NUR ---
PT LAYING IN BED, RESPIRATIONS EVEN AND UNLABORED. NO COMPLAINT OF PAIN. REPORTED NEEDED TO USE THE BATHROOM. AMBULATED TO THE BATHROOM SBA. DENIES FURTHER NEEDS. CALL LIGHT IN REACH.
[2025-07-08] VITALS (9 sets, daily range): BP systolic 106–114; BP diastolic 60–74
--- NOTE | 2025-07-08 00:30 | NUR ---
PT LAYING IN BED. RESPIRATION EVEN AND UNLABORED. PRN MELATONIN GIVEN PER PT REQUEST. DENIES FURTHER NEEDS. CALL LIGHT IN REACH.
--- NOTE | 2025-07-08 01:39 | NUR ---
PT AMBULATED TO THE BATHROOM SBA WITH A CANE, TOLERATED WELL. DRESSING CHANGED ON PARACENTESIS SITE PER PT REQUEST. SCDS ON. DENIES FURTHER NEEDS. CALL LIGHT IN REACH.
--- NOTE | 2025-07-08 03:48 | NUR ---
PT RESTING IN BED. RESPIRATIONS EVEN AND UNLABORED. NO APPARENT NEEDS NOTED AT THIS TIME. PERSONAL BELONGINGS AND CALL LIGHT IN REACH.
[2025-07-08 05:14] LABS: BASOPHILS 0.1 % (0.2-1.2); EOSINOPHILS 1.4 % (0.8-7.0); LYMPHOCYTES 10.5 % (21.8-53.1); MCH 35.8 PG (25.7-32.2); MCHC 35.9 g/dL (32.3-36.5); MCV 99.7 fL (79.0-92.2); MONOCYTES 6.8 % (5.3-12.2); NEUTROPHILS 80.7 % (34.0-67.9); RBC 3.07 M/uL (4.63-6.08)
[2025-07-08 05:27] LABS: ALT (SGPT) 63.0 U/L (14-59); AST (SGOT) 88.0 U/L (15-37); GLOMERULAR FILTRATION RATE,EST 120.0 mL/min (>60); PROTEIN, TOTAL 5.6 g/dL (6.4-8.2); UREA NITROGEN 12.0 mg/dL (7-18)
--- NOTE | 2025-07-08 06:42 | NUR ---
PT LAYING IN BED. RESPIRATIONS EVEN AND UNLABORED. DENIES NEEDS AT THE MOMENT. PERSONAL BELONGINGS AND CALL LIGHT IN REACH.
--- NOTE | 2025-07-08 07:22 | NUR ---
REPORT RECEIVED FROM HILARIO CALDWELL. PATIENT IN BED, EYES CLOSED, CHEST RISE EVEN AND UNLBAORED. CALL LIGHT IN REACH. NO APPARENT NEEDS NOTED AT THIS TIME.
--- NOTE | 2025-07-08 08:25 | NUR ---
TALKED WITH DR FOX ABOUT PATIENT'S BLOOD SUGAR CHECKS AND PATIENT WITHOUT A HISTORY OF DIABETES. STATES IT IS OKAY TO DC SUGAR CHECKS AND INSULIN ORDER. ALSO STATES PATIENT IS OKAY TO NOT HAVE A 60G CARB DIET ORDER. WITH NO FURTHER ORDERS AT THIS TIME.
--- NOTE | 2025-07-08 08:33 | NUR ---
PATIENT IN BED, PATIENT TRANSFERRED TO CHAIR. ASSESMENT COMPLETED. SCHEDULED MEDICATIONS ADMINISTERED. BREAKFAST AT BEDSIDE. VITAL SIGNS COMPLETED. CALL LIGHT IN REACH. PATIENT DENIES CONCERNS.
--- NOTE | 2025-07-08 08:43 | NUR ---
TALKED WITH DR FOX ABOUT PATIENT'S BLOOD SUGAR CHECKS AND PATIENT WITHOUT A HISTORY OF DIABETES. STATES IT IS OKAY TO DC SUGAR CHECKS AND INSULIN ORDER. ALSO STATES PATIENT IS OKAY TO HAVE A REGULAR ORDER. MD WITH NO FURTHER ORDERS AT THIS TIME.
[2025-07-08] MEDS ORDERED: predniSONE 20 MG TAB PO SCH (09:00)
--- NOTE | 2025-07-08 11:03 | NUR ---
INTO SEE PATIENT. PATIENT STATES HE IS FEELING MUCH BETTER AND THAT HE IS AGREEABLE TO HOME HEALTH AND [facility] WILL BE FOLLOWING HIM AFTER DISCHARGE. HIM AND HIS ARE MAKING A LIST OF QUESITIONS FOR CASE MANAGEMENT AT TIME OF DISCHARGE.
--- NOTE | 2025-07-08 11:03 | NUR ---
PATIENT IN BED, RADIOLOGY AT BEDSIDE. CALL LIGHT IN REACH, PATIENT DENIES CONCERNS
--- NOTE | 2025-07-08 11:28 | NUR ---
PATIENT IN BED, EYES OPEN, PATIENT SPEAKING ON HIS PERSONAL PHONE. CALL LIGHT AND PERSONAL BELONGINGS IN REACH OF PATIENT. NO APPARENT NEEDS NOTED AT THIS TIME.
--- NOTE | 2025-07-08 12:18 | NUR ---
PATIENT IN BED. PATIENT REPORTS PAIN, PRN PAIN MEDICATION ADMINISTERED PER PATIENT REQUEST. SCHEDULED MEDICATIONS ADMINISTERED. CALL LIGHT IN REACH OF PATIENT. LUNCH AT BEDSIDE. PT AT BEDSIDE. PATIENT DENIES CONCERNS.
--- NOTE | 2025-07-08 13:05 | NUR ---
PATIENT AMBULATING WINTERS WITH .
--- NOTE | 2025-07-08 13:58 | NUR ---
PATIENT SITTING AT SIDE OF BED, AT BEDSIDE. SCHEDULED MEDICATIONS ADMINISTERED. PERSONAL BELONGINGS AND CALL LIGHT IN REACH OF PATIENT.
--- NOTE | 2025-07-08 14:14 | NUR ---
PATIENT IN BED, AT BEDSIDE. PATIENT PROVIDED WITH APPLE JUICE AT HIS REQUEST. PATIENT DENIES FURTHER CONCERNS.
--- NOTE | 2025-07-08 15:01 | NUR ---
PATIENT IN BED, EYES CLOSED, CHEST RISE EVEN AND UNLABORED. CALL LIGHT AND PERSONAL BELONGINGS IN REACH OF PATIENT.
--- NOTE | 2025-07-08 15:04 | NUR ---
PATIENT WAS OFFERED A SHOWER. THEY REFUSED STATING THEY WOULD RATHER RUBI ONE TOMORROW. INDEPENDENTLY WASHED THEIR FACE AND DID ORAL CARE.
--- NOTE | 2025-07-08 15:34 | NUR ---
RECIEVED HAND OFF REPORT FROM HILARIO HOPKINS.
--- NOTE | 2025-07-08 16:32 | NUR ---
PATIENT UP USING BATHROOM, PATIENT AWARE OF CALL LIGHT USE IF ANY NEEDS. NO FURTHER NEEDS AT THIS TIME.
--- NOTE | 2025-07-08 17:56 | NUR ---
PATIENT EATING DINNER WITH FAMILY IN THE ROOM. NO NEEDS AT THIS TIME.
--- NOTE | 2025-07-08 18:33 | NUR ---
PT CALLED PARACENTESIS SITE BANDAGE LEAKING. THIS RN APPLIED OPTILOCK AND TEGADERM TO SITE. PT SATISFIED. FAMILY AT BEDSIDE. CALL LIGHT IN REACH.
--- NOTE | 2025-07-08 20:00 | NUR ---
Patient sitting up in bed watching tv, no distress. Vital signs taken, stable at this time. Patient denies needs. Fresh water at bedside, call light within reach.
--- NOTE | 2025-07-08 20:23 | NUR ---
Pt visiting withfamily via phone. will do assessments and meds when he gets done
--- NOTE | 2025-07-08 21:16 | NUR ---
SITTING UP IN BED, WATCHING TV. ON ROOM AIR, CLEAR LUNGS, ABD DISTENDEND LOWER ABD DRESSINGIN PLACE AND OPTILOCK l SIDE OF ABD. ABD SOFT, TENDER, FAINT ACTIVE BT'S. COOPERATIVE WITH ASSESSMENT.
--- NOTE | 2025-07-08 23:02 | NUR ---
PT USED CALL LIHGT, HAD A LOOSE BM AND VOIDED, BACKA TO BED, TOLERATED WELL, INDEPENDENT. MELATONIN GIVEN ON REQUESTS. WARM BLANKET, SCDS AND FRESH WATER. NO C/O PAIN, BACK IN BED
--- NOTE | 2025-07-09 01:02 | NUR ---
Resting, hob elevated, eyes closed, no s/sx distress. On room air
--- NOTE | 2025-07-09 03:35 | NUR ---
used call light, up to BRP with assist. voided and had a bm. Back to bed, cooperative with assessments. abd distended, firm, opticock and dressing in abd w/o changes. SCD's back in place.
--- NOTE | 2025-07-09 04:23 | NUR ---
Resting, eyes closed, on room air. no s/sx distress.
[2025-07-09 05:12] VITALS: BP 103/61
[2025-07-09 05:16] VITALS: BP 103/61
[2025-07-09 05:19] LABS: BASOPHILS 0.2 % (0.2-1.2); EOSINOPHILS 2.2 % (0.8-7.0); LYMPHOCYTES 15.1 % (21.8-53.1); MCH 35.2 PG (25.7-32.2); MCHC 35.5 g/dL (32.3-36.5); MCV 99.0 fL (79.0-92.2); MONOCYTES 7.8 % (5.3-12.2); NEUTROPHILS 74.0 % (34.0-67.9); RBC 3.10 M/uL (4.63-6.08)
[2025-07-09 05:35] LABS: ALT (SGPT) 56.0 U/L (14-59); AST (SGOT) 70.0 U/L (15-37); GLOMERULAR FILTRATION RATE,EST 122.0 mL/min (>60); PROTEIN, TOTAL 5.5 g/dL (6.4-8.2); UREA NITROGEN 13.0 mg/dL (7-18)
--- NOTE | 2025-07-09 06:30 | NUR ---
CALL LIGHT ANSWERED. SBA WITH CANE TO RESTROOM FOR BM. VERBALIZES TO USE CALL LIGHT WHEN FINISHED.
[2025-07-09] MEDS ORDERED: SPIRONOLACTONE25 MG PO ×2 (07:07)
[2025-07-09] MEDS ORDERED: LACTULOSE10 GM/151 PO ×2 (07:07)
[2025-07-09] MEDS ORDERED: FUROSEMIDE40 MG PO ×2 (07:07)
[2025-07-09] MEDS ORDERED: VITAMIN B-1100 MG PO ×2 (07:08)
[2025-07-09] MEDS ORDERED: FOLIC ACID1 MG PO ×2 (07:08)
--- NOTE | 2025-07-09 07:13 | NUR ---
VERBAL REPORT RECIVED BY HILARIO CARRERA. PATIENT REQUESTING BREATHING TREATMENT AND PAIN MEDICATION. DISCUSSED WITH PATIENT THAT WE WILL LOOK OF EMAR AND BRING IN WITH MORNING MEDS. CALL LIGHT IN REACH. NO FURTHER NEEDS AT THIS TIME.
--- NOTE | 2025-07-09 07:40 | NUR ---
IN TO DO MORNING ROUNDS. WHITE BOARD UP DATED. PATIENT IND. IN ROOM AND HAS AM AND ORAL CARE SUPPLIES AT SINK. CALL LIGHT IN REACH. NO FURTHER NEEDS AT THIS TIME.
--- NOTE | 2025-07-09 08:34 | NUR ---
MORNING ASSESSMENT COMPLETE. DRESSING CHANGED IN THE LEFT LOWER QUADRANT AND THE LOWER MID ABD. PATIENT IS ANXIOUS REGARDING MEDICATION AND POC, REASSURED AND EDUCATED PATIENT ON POC. FRESH WATER PROVIDED PER PATIENT REQUEST. PATIENT DENIES BREAKFAST STATES "I DO NOT WANT TO HAVE TO GO TO THE BATHROOM ON MY WAY HOME." NO FURTHER NEEDS AT THIS TIME. CALL LIGHT IN REACH.
[2025-07-09] MEDS ORDERED: predniSONE 10 MG TAB PO SCH (09:00)
[2025-07-09 09:53] VITALS: BP 130/80
--- NOTE | 2025-07-09 09:56 | NUR ---
ALERT AND ORIENTED IN BED, SPOUSE AT BEDSIDE. MULTIPLE QUESTIONS ASKED BY BOTH PATIENT AND SPOUSE. EDUCATION PROVIDED. DISCUSSED WAYS TO MONITOR FLUID IN ABDOMEN. ENCOURAGED TO WEIGH DAILY AND MEASURE ABDOMEN. INFORMED OF F/U APPOINTMENT NEXT WITH WITH PCP AND INFORMED THAT WILL BE ON HIS DISCHARGE INSTRUCTIONS. PATIET STATES HE PLANS TO WORK WITH [employer]LO[employer]. HE WANTS TO STOP MARIJUANA USE, SMOKING TOBACCO AND DRINKING ALCOHOL. STATES HE WANTS TO BE COMPLIANT WITH MEDICATIONS TOO. STATES HE IS AWARE OF THE LIFESTYLE CHANGES HE NEEDS TO MAKE TO STAY AROUND FOR HIS FAMILY. HE IS WANTING TO TRY TO GET ON TRANSPLANT LIST FOR HIS LIVER. HE AGREES TO HOME HEALTH WITH GOOD [employer] STATING HE CAN NOT BELIEVE HOW WEAK HE HAS BEEN SINCE BEING IN THE HOSPITAL. VOICES THE LIFESTYLE CHANGES HE PLANS TO MAKES, HE DOES HAVE PLANS IN PLACE TO IMPLEMENT THESE CHANGES. PLANS TO DC TO HOME TODAY. ALSO PROVIDED INFORMATION TO ABOUT [facility] FOR SHOWER CHAIR.
[2025-07-09 10:18] VITALS: BP 130/62
[2025-07-09 10:19] VITALS: BP 130/80
--- NOTE | 2025-07-09 10:19 | NUR ---
DISCUSSED DC PACKET WITH PT AND . PT STATES HE WANTS TO STAY A FEW HOURS TO REST AND ELEVATE HIS FEET IN BED. MATILDA, PHARMACY IN ROOM TO DISCUSS MEDICATIONS.
--- NOTE | 2025-07-09 10:20 | NUR ---
VITALS COMPLETE, CASE MGMT IN TO VISIT WITH PATIENT AND FAMILY.
[2025-07-09 13:09] VITALS: BP 107/61
--- NOTE | 2025-07-09 13:21 | NUR ---
PT IS READY TO GO HOME. IV BEING REMOVED AT THIS TIME. PT REQUESTING TO USE THE RESTROOM. IN ROOM TO HELP PT. PT AWARE TO USE CALL LIGHT IF ANY NEEDS.
[2025-07-09 15:28] LABS: TOTAL PROTEIN FLUID SOURCE Ascites fluid (())
--- NOTE | 2025-07-09 16:17 | NUR ---
CHART AND ORDERS FAXED TO [facility].
== END 2025-07-09 13:55 | disposition home health service (06) | DRG 432 ==
LOC: ED 08:37 → MS 12:20 → CCU 12:20 → MS 07-04 18:34
PROVIDERS: Emergency Medicine; Family Medicine; ADMIT Student in an Organized Health Care Education/Training Program; ATTEND Internal Medicine
PROC: 0T9B70Z Drainage of Bladder with Drainage Device, Via Natural or Artificial Opening (ICD-10-PCS; 2025-06-23)
PROC: 30233J1 Transfusion of Nonautologous Serum Albumin into Peripheral Vein, Percutaneous Approach (ICD-10-PCS; 2025-06-24)
PROC: 30233R1 Transfusion of Nonautologous Platelets into Peripheral Vein, Percutaneous Approach (ICD-10-PCS; 2025-06-24)
PROC: 3E03329 Introduction of Other Anti-infective into Peripheral Vein, Percutaneous Approach (ICD-10-PCS; 2025-06-30)
PROC: 0W9G3ZZ Drainage of Peritoneal Cavity, Percutaneous Approach (ICD-10-PCS; principal; 2025-07-06)
DX: K70.11 Alcoholic hepatitis with ascites (principal); J69.0 Pneumonitis due to inhalation of food and vomit; E72.20 Disorder of urea cycle metabolism, unspecified; F10.239 Alcohol dependence with withdrawal, unspecified; D72.829 Elevated white blood cell count, unspecified; D69.59 Other secondary thrombocytopenia; K72.10 Chronic hepatic failure without coma; K80.20 Calculus of gallbladder without cholecystitis without obstruction; E87.6 Hypokalemia; Z86.16 Personal history of COVID-19
CPT/HCPCS: 36415; 36592; 49083; 51702; 51798; 71045; 74018; 76705; 80048; 80053; 80074; 81001; 82140; 83690; 83735; 83986; 84100; 84157; 85025; 85060; 85610; 85730; 86850; 86900; 86901; 87040; 87070; 87075; 87088; 87205; 89051; 92507; 92526; 92610; 93005; 93010; 94640; 94668; 94760; 94762; 94799; 96374; 96375; 96376; 97110; 97116; 97162; 97166; 97530; 97535; 99285-25; A9270; J0132; J1200; J1815; J1938; J2060; J2270; J2405; J2470; J2543; J2560; J2919; J3411; J3430; J3475; J3480; J3490; J7030; J7060; J7070; J7121; J7512; P9035; P9047; P9073

== ENCOUNTER 2025-07-10 04:18 | Emergency (ER) | payer OTHER ==
[~2025-07-10] VITALS: Ht 175.3 cm; Wt 62.0 kg
[~2025-07-10 04:18] MED LIST changes: +FOLIC ACID1 MG PO; +FUROSEMIDE40 MG PO; +LACTULOSE10 GM/151 PO; +SPIRONOLACTONE25 MG PO; +VITAMIN B-1100 MG PO
--- OUTSIDE RECORDS SUMMARY | 2025-07-10 04:40 | XMS ---
PreManage Notification: JOSSELIN MCCRACKEN Security Hide Puller Events No recent Security Events currently on file CRITERIA MET - [facility] - 2 Visits in 30 Days CARE PROVIDERS -, [facility] Dentist: Apartment Community Manager [place] - [facility] PHONE: [phone] -, [place]- Dentist: Apartment Community Manager [facility] PHONE: [phone] [facility]/[place]: [facility] FAMILY PHONE: [phone] Jeff has no Care Guidelines for this patient. E.D. VISIT COUNT (12 MO.) 3 JO Garcia TOTAL 3 NOTE: Visits indicate total known visits. ED/UCC VISIT TRACKING (12 MO.) 07/10/2025 04:19 [facility] TYPE: Emergency COMPLAINT: - MUSCLE CRAMPING 06/23/2025 08:38 [facility] TYPE: Emergency COMPLAINT: - ABDOMINAL PAIN 10/21/2024 15:07 [facility] TYPE: Emergency COMPLAINT: - FEET SWELLING DIAGNOSES: - Cellulitis of right lower limb - Other senior care (current) drug therapy - Other specified soft tissue disorders - Tinea pedis - Tinea unguium - Unspecified asthma, uncomplicated INPATIENT VISIT TRACKING (12 MO.) 06/23/2025 12:20 [facility] OR TYPE: Medical Surgical COMPLAINT: - ALCOHOLIC HEPATITIS [email or web address]
[2025-07-10] MEDS ORDERED: LACTULOSE 20 GM/30 ML CUP PO ONE (04:45)
[2025-07-10] MEDS ORDERED: SPIRONOLACTONE 25 MG TAB PO ONE (04:45)
[2025-07-10] MEDS ORDERED: FUROSEMIDE 40 MG TAB PO ONE (04:45)
[2025-07-10 05:12] LABS: BASOPHILS 0.2 % (0.2-1.2); EOSINOPHILS 1.8 % (0.8-7.0); LYMPHOCYTES 11.4 % (21.8-53.1); MCH 36.0 PG (25.7-32.2); MCHC 36.3 g/dL (32.3-36.5); MCV 99.4 fL (79.0-92.2); MONOCYTES 6.6 % (5.3-12.2); NEUTROPHILS 79.3 % (34.0-67.9); RBC 3.44 M/uL (4.63-6.08)
[2025-07-10 05:24] LABS: ALT (SGPT) 61.0 U/L (14-59); AST (SGOT) 81.0 U/L (15-37); GLOMERULAR FILTRATION RATE,EST 116.0 mL/min (>60); PROTEIN, TOTAL 6.4 g/dL (6.4-8.2); UREA NITROGEN 18.0 mg/dL (7-18)
[2025-07-10 06:21] VITALS: BP 109/69
== END 2025-07-10 06:21 | disposition home or self-care (01) ==
LOC: ED 04:18
PROVIDERS: Internal Medicine
DX: S29.012A Strain of muscle and tendon of back wall of thorax, initial encounter (principal); S39.012A Strain of muscle, fascia and tendon of lower back, initial encounter; K70.31 Alcoholic cirrhosis of liver with ascites; Z79.899 Other long term (current) drug therapy; X58.XXXA Exposure to other specified factors, initial encounter
CPT/HCPCS: 36415; 80053; 82140; 83690; 85025; 99283

== ENCOUNTER 2025-07-13 10:57 | Emergency (ER) | payer OTHER ==
[~2025-07-13] VITALS: Ht 175.3 cm; Wt 60.8 kg
--- OUTSIDE RECORDS SUMMARY | 2025-07-13 11:04 | XMS ---
PreManage Notification: JOSSELIN MCCRACKEN Security Marine Scientist Events No recent Security Events currently on file CRITERIA MET - [facility] - 2 Visits in 30 Days CARE PROVIDERS -, [facility]ist: Birth Attendant [facility] PHONE: [phone] -, [place]- Dentist: Birth Attendant Current [facility] PHONE: [phone] [facility]/[place]: [facility] FAMILY PHONE: [phone] Jeff has no Care Guidelines for this patient. E.D. VISIT COUNT (12 MO.) 4 JO Garcia TOTAL 4 NOTE: Visits indicate total known visits. ED/UCC VISIT TRACKING (12 MO.) 07/13/2025 10:58 [facility] OR TYPE: Emergency COMPLAINT: - ABDOMINAL PAIN 07/10/2025 04:19 [facility] OR TYPE: Emergency COMPLAINT: - MUSCLE CRAMPING DIAGNOSES: - Alcoholic cirrhosis of liver with ascites - Exposure to other specified factors, initial encounter - Other dorsalgia - Other group home (current) drug therapy - Strain of muscle and tendon of back wall of thorax, initial encounter - Strain of muscle, fascia and tendon of lower back, initial encounter 06/23/2025 08:38 [facility] OR TYPE: Emergency COMPLAINT: - ABDOMINAL PAIN 10/21/2024 15:07 [facility] OR TYPE: Emergency COMPLAINT: - FEET SWELLING DIAGNOSES: - Cellulitis of right lower limb - Other group home (current) drug therapy - Other specified soft tissue disorders - Tinea pedis - Tinea unguium - Unspecified asthma, uncomplicated INPATIENT VISIT TRACKING (12 MO.) 06/23/2025 12:[address] [facility] OR TYPE: Medical Surgical COMPLAINT: - ALCOHOLIC HEPATITIS DIAGNOSES: - Alcohol dependence with withdrawal, unspecified - Alcoholic hepatitis with ascites - Calculus of gallbladder without cholecystitis without obstruction - Chronic hepatic failure without coma - Disorder of urea cycle metabolism, unspecified - Elevated white blood cell count, unspecified - Hypokalemia - Other secondary thrombocytopenia - Personal history of COVID-19 - Pneumonitis due to inhalation of food and vomit [email or web address]
[2025-07-13 12:45] LABS: BASOPHILS 0.7 % (0.2-1.2); EOSINOPHILS 2.2 % (0.8-7.0); LYMPHOCYTES 11.1 % (21.8-53.1); MCH 35.9 PG (25.7-32.2); MCHC 36.2 g/dL (32.3-36.5); MCV 99.1 fL (79.0-92.2); MONOCYTES 8.7 % (5.3-12.2); NEUTROPHILS 76.8 % (34.0-67.9); RBC 3.51 M/uL (4.63-6.08)
[2025-07-13 12:57] LABS: INR 1.6 (0.80-1.30); PROTIME 18.1 Sec (11.2-14.2)
[2025-07-13 13:00] LABS: ALT (SGPT) 40.0 U/L (14-59); AST (SGOT) 77.0 U/L (15-37); GLOMERULAR FILTRATION RATE,EST 113.0 mL/min (>60); PROTEIN, TOTAL 6.7 g/dL (6.4-8.2); UREA NITROGEN 12.0 mg/dL (7-18)
[2025-07-13] MEDS ORDERED: LACTULOSE 20 GM/30 ML CUP PO ONE (13:00)
[2025-07-13 13:45] VITALS: BP 110/69
[2025-07-13] MEDS ORDERED: HEPARIN SOD,PORK IN 0.45% NACL 500 ML IV SCH (17:45)
== END 2025-07-13 13:46 | disposition home or self-care (01) ==
LOC: ED 10:57
PROVIDERS: Emergency Medicine
DX: K70.30 Alcoholic cirrhosis of liver without ascites (principal); J45.909 Unspecified asthma, uncomplicated; Z79.899 Other long term (current) drug therapy
CPT/HCPCS: 36415; 80053; 82140; 83690; 85025; 85610; 99284